=== PATIENT | female | born 1955 | race Caucasian/White ===

== ENCOUNTER 2020-08-04 08:46 | Outpatient (CLI) | payer MEDICARE, OTHER, SELFPAY ==
--- NOTE | ~2020-08-04 | MM_ITS ---
EXAMINATION: MM screening klever BI w kadie HISTORY: Screening mammogram TECHNIQUE: Craniocaudal and mediolateral oblique 3-D tomosynthesis images were obtained and synthetic 2-D images were generated. CAD analysis was submitted and interpreted. COMPARISON: 08/03/2019 left diagnostic digital mammogram and limited left breast ultrasound 07/25/2019, 05/04/2018, 04/29/2017 bilateral digital screening mammogram examinations BREAST PARENCHYMAL COMPOSITION: There are scattered areas of fibroglandular density. FINDINGS: Stable mild fibroglandular asymmetry. There is no evidence of suspicious mass, calcificatio n, or architectural distortion to suggest malignancy in either breast. There has been no suspicious i nterval change. IMPRESSION: 1. No mammographic evidence of malignancy. 2. Recommend routine screening mammography in one year. BI-RADS Category 1: Negative Reviewed, dictated and finalized at location A. GER DATABASE
== END 2020-08-04 08:47 | disposition home or self-care (01) ==
LOC: CHSIMG 08:51
PROVIDERS: PCP Internal Medicine; Visit Provider Obstetrics & Gynecology
DX: Z12.31 Encounter for screening mammogram for malignant neoplasm of breast (principal)
CPT/HCPCS: 77063; 77067

== ENCOUNTER 2020-12-03 13:50 | Outpatient (CLI) | payer MEDICARE, SELFPAY ==
--- NOTE | ~2020-12-03 | XR_ITS ---
EXAMINATION: XR barium swallow modified DATE: 12/03/2020 14:36 INDICATION: Dysphagia. TECHNIQUE: The patient was given barium-containing material of multiple consistencies to swallow by anitha schultz speech pathologist while I performed fluoroscopy. Dose-area product was 0.92 Gy-cm2. 1.6 minutes fluoroscopy time FINDINGS: Oral Stage: Within functional limits Pharyngeal Phase: Within functional limits Cervical/Esophageal Stage: Within functional limits IMPRESSION: Modified esophagram findings as above. Please refer to the speech therapy [facility]. Reviewed, dictated and finalized at Location A. Reviewed, dictated and finalized at location A. IMPRESSION: Modified esophagram findings as above. Please refer to the speech t herapy report for specific recommendations.
--- NOTE | 2020-12-03 14:48 | STOPEVAL ---
Thank you for referring Sarah Rucker to [facility].? The patient was seen for a modified barium swallow study only. Please review, sign, date and return this plan of care STACIE. I agree with and certify that the following plan of care is medically necessary. Referring Physician Date Admitting Provider: Attending Provider: Martin ValverdeMD Referring Provider: JAYSON Outpatient Evaluation Start: 12/03/20 14:26 Freq: Status: Active Protocol: Document 12/03/20 14:27 [id number] (Rec: 12/03/20 14:47 [facility] [email or web address]) Therapy Assessment Status Assessment Status Assessment Status Evaluation Outpatient Past Medical History Past Medical History No Past Medical/Surgical History Patient/Family Denies Significant Past Medical/ Surgical History Source of Past Medical History Patient Pain Assessment Timing of Pain Assessment Timing of Pain Assessment Assessment Self Report Self Report Pain Level 0 Pain Score Pain Score 0: Self Report Modified Barium Swallow Evaluation Recent Swallowing History Reports Dysphagia Yes Onset of Dysphagia 1-2 years ago Duration of Dysphagia 1-2 yrs occasional difficulty swallowing solids (lunch meats , crispy chips) History of Pneumonia No Reported Difficult Consistencies Solids Intake Method Prior to Swallow Oral Evaluation Diet Prior to Swallow Evaluation Regular, Level 7 Liquid Consistency Prior to Swallow Thin (0) Evaluation Consistency Solid Consistency 5 mL Other Amount Frito chips Method of Presentation self fed Oral Preparatory Symptoms Within Functional Limits Oral Phase Symptoms Within Functional Limits Pharyngeal Phase Symptoms Within Functional Limits, Residue in Valleculae Severity of Vallecular Residue Trace - 1-5 % Trace Coating of the Mucosa Severity of Pyriform Sinus Residue None - 0% No Residue 8 Point Laryngeal Penetration-Aspiration Material Does Not Enter Airway Scale Pharyngeal Phase Comments Mild residue post deglutition with clearance through subsequent swallow. Pureed Consistency 5 mL Method of Presentation Spoon Oral Preparatory Symptoms Within Functional Limits Oral Phase Symptoms Within Functional Limits Pharyngeal Phase Symptoms Within Functional Limits Severity of Vallecular Residue None - 0% No Residue Severity of Pyriform Sinus Residue None - 0% No Residue 8 Point Laryngeal Penetration-Aspiration Material Does Not Enter Airway Scale
== END 2020-12-03 13:51 | disposition home or self-care (01) ==
LOC: CHSIMG 13:52
PROVIDERS: PCP Internal Medicine; Visit Provider Otolaryngology
DX: R13.19 Other dysphagia (principal)
CPT/HCPCS: 92611

== ENCOUNTER 2021-05-28 13:17 | Outpatient (RCR) | payer MEDICARE, SELFPAY ==
--- NOTE | 2021-05-28 13:35 | PTOPEVAL ---
Thank you for referring Sarah Mayberry to [facility].? The patient is scheduled to be seen for therapy? ____x/week for ___ weeks. Please review, sign, date and return this plan of care STACIE. I agree with and certify that the following plan of care is medically necessary. Referring Physician Date Admitting Provider: Attending Provider: Ventura Hinton MD Referring Provider: *PT Outpatient Evaluation Start: 05/28/21 13:02 Freq: Status: Active Protocol: Document 05/28/21 13:00 [facility] (Rec: 05/28/21 13:34 [facility] [email or web address]) Therapy Assessment Status Assessment Status Assessment Status Evaluation Evaluation Information Problem Diagnosis BPPV Onset 05/26/21 Subjective Information patient reports she has had Query Text:As Reported By Patient/ BPPV off and on for 15 years. Family she reports she has maybe had a bout of it 4 times a year. she reports the first time she had this was the worst. she reports she has issues rolling to the R, looking up, and lying flat on her back. she reports her symptoms will go away when she straightens/sits up. she reports her vertigo/ dizziness will feel like she going to fall or is falling. she reports laying back slowly helps. she reports she has not had treatment in roughly 8 years. Pain Assessment Timing of Pain Assessment Timing of Pain Assessment Assessment Self Report Self Report Pain Level 0 Pain Score Pain Score 0: Self Report Cervical and Lumbar ROM Cervical ROM Reason Not Measured WNL/Left,WNL/Right Cervical ROM Comments hesitation with cervical extension (looking up to ceiling). Palpation Assessment Palpation Palpation patient presents with positive vertiacl nystagmus with little hallpike test to the R side. General Exercise General Exercises Exercise Description -merrick maneuver 5 minutes Query Text:Record Sets, Reps, -hep education 5 minutes Resistance, and Position PT Clinical Summary Clinical Summary Protocol: PTEVCODE PT Clinical Summary mrs. mayberry is a pleasant 66 yo woman who presents to skilled PT services for
--- NOTE | 2021-06-11 13:36 | PTOPEVAL ---
Thank you for referring Sarah Mayberry to [facility].? The patient is scheduled to be seen for therapy? ____x/week for ___ weeks. Please review, sign, date and return this plan of care STACIE. I agree with and certify that the following plan of care is medically necessary. Referring Physician Date Admitting Provider: Attending Provider: Ventura Hinton MD Referring Provider: *PT Outpatient Evaluation Start: 05/28/21 13:02 Freq: Status: Active Protocol: Document 06/11/21 13:00 [facility] (Rec: 06/11/21 13:33 [facility] [id number]) Therapy Assessment Status Assessment Status Assessment Status Discharge Evaluation Information Problem Diagnosis BPPV Onset 05/26/21 Additional Evaluation Detail DHI = 12% functionally declined Subjective Information patient reports she has had no Query Text:As Reported By Patient/ symptoms of dizziness in the Family last 2 weeks. 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 she reports she has been compliant with her HEP at home. Pain Assessment Timing of Pain Assessment Timing of Pain Assessment Assessment Self Report Self Report Pain Level 0 Pain Score Pain Score 0: Self Report Cervical and Lumbar ROM Cervical ROM Reason Not Measured WNL/Left,WNL/Right Cervical ROM Comments no hesitation in cervical mobility Palpation Assessment Palpation Palpation negative little hallpike testing bilaterally General Exercise General Exercises Exercise Description -cawthorne fidelia exercise Query Text:Record Sets, Reps, review 5 minutes Resistance, and Position -re-evaluation 5 minutes PT Clinical Summary Clinical Summary Protocol: PTEVCODE PT Clinical Summary mrs. maybrery presents to skilled PT for her 3rd skilled PT visit for BPPV. during her therapy time she has participate in merrick maneuver exercises and cawthorne fidelia habituation exercises. 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 she woul
== END 2021-06-11 16:48 | disposition home or self-care (01) ==
LOC: CHSPT 13:17
PROVIDERS: PCP Internal Medicine; Visit Provider Internal Medicine
DX: H81.10 Benign paroxysmal vertigo, unspecified ear (principal)
CPT/HCPCS: 97110; 97161

== ENCOUNTER 2021-05-30 07:41 | Outpatient (CLI) | payer MEDICARE, SELFPAY ==
--- NOTE | ~2021-05-30 | MR_ITS ---
EXAMINATION: MR brain IAC wo con DATE: 05/30/2021 08:51 INDICATION: Chronic vertigo. Dizziness. TECHNIQUE: Magnetic resonance imaging (MRI) of the brain, brainstem, and internal auditory canals was performed without intravenous contrast. Sequences included sagittal and axial T1-weighted FSE, axial diffusion-weighted FS EPI, axial T2*-weighted GRE, axial T2-weighted FLAIR Propeller, axial T2-weigh dennise Propeller, small snbhh-pr-aoqd coronal FIESTA, small ijxvv-tq-pxqd coronal T1-weighted FSE, and s mall nucqs-dj-zjrz axial T1-weighted SPGR. Apparent diffusion coefficient (ADC) maps were created. COMPARISON: None. FINDINGS: There are scattered areas of nonspecific increased T2-weighted signal intensity in the cere bral white matter, which is within normal limits for the patient's age. There is no intracranial hemo rrhage, acute infarction, or abnormal intracranial mass lesion. The ventricles are normal in size. Th e orbits are normal. There is mild mucosal thickening in the ethmoid sinuses. The mastoid air cells a re normal. The internal auditory canals and inner and middle ears are normal. IMPRESSION: 1. Normal aging brain. Reviewed, dictated and finalized at location A. IMPRESSION: 1. Normal aging brain.
== END 2021-05-30 07:42 | disposition home or self-care (01) ==
LOC: CHSIMG 07:43
PROVIDERS: PCP Internal Medicine; Visit Provider Internal Medicine
DX: R42 Dizziness and giddiness (principal)
CPT/HCPCS: 70551

== ENCOUNTER 2021-08-18 08:24 | Outpatient (CLI) | payer MEDICARE, SELFPAY ==
--- NOTE | ~2021-08-18 | MM_ITS ---
EXAMINATION: MM screening klever BI w kadie HISTORY: Screening mammogram, family history of breast cancer in her mother. TECHNIQUE: Craniocaudal and mediolateral oblique 3-D tomosynthesis images were obtained and synthetic 2-D images were generated. CAD analysis was submitted and interpreted. COMPARISON: 08/04/2020, 08/03/2019 07/25/2019 BREAST PARENCHYMAL COMPOSITION: There are scattered areas of fibroglandular density. FINDINGS: There is no evidence of suspicious mass, calcification, or architectural distortion to sugg est malignancy in either breast. There has been no suspicious interval change. IMPRESSION: 1. No mammographic evidence of malignancy. 2. Recommend routine screening mammography in one year. BI-RADS Category 1: Negative Reviewed, dictated and finalized at location A. NA SUBSPECIALIST
== END 2021-08-18 08:25 | disposition home or self-care (01) ==
LOC: CHSIMG 08:25
PROVIDERS: PCP Internal Medicine; Visit Provider Obstetrics & Gynecology
DX: Z12.31 Encounter for screening mammogram for malignant neoplasm of breast (principal)
CPT/HCPCS: 77063; 77067

== ENCOUNTER 2021-11-16 10:03 | Outpatient (CLI) | payer MEDICARE, SELFPAY ==
[2021-11-16 10:18] LABS: Basophils Absolute Auto 0.01 K/mm3 (0.00-0.10); Basophils Percent Auto 0.2 % (0.0-1.0); Eosinophils Absolute Auto 0.06 K/mm3 (0.02-0.50); Eosinophils Percent Auto 1.1 % (1.0-6.0); Hematocrit 43.6 % (35.0-42.0); Hemoglobin 14.4 g/dL (11.7-13.8); Immature Granulocyte Absolute 0.02 K/mm3 (0.00-0.00); Immature Granulocyte Percent A 0.4 % (0.0-0.0); Lymphocytes Absolute Auto 2.16 K/mm3 (1.10-4.50); Lymphocytes Percent Auto 40.3 % (18.0-42.0); Mean Corpuscular Hemoglobin 30.3 pg (27.0-31.0); Mean Corpuscular Volume 91.8 fL (78.0-102.0); Mean Platelet Volume 10.4 fl (9.2-11.8); Monocytes Absolute Auto 0.46 K/mm3 (0.10-0.90); Monocytes Percent Auto 8.6 % (2.0-11.0); Neutrophils Absolute Auto 2.7 K/mm3 (1.7-7.2); Neutrophils Percent Auto 49.4 % (50.0-70.0); Platelet Count Result 274 K/mm3 (150-420); Red Blood Count 4.75 M/mm3 (4.20-5.40); Red Cell Distribution Width 12.3 % (11.6-14.4); White Blood Count 5.4 K/mm3 (4.8-10.8)
[2021-11-16 10:53] LABS: Alanine Aminotransferase 20 U/L (14-59); Albumin Level 3.9 g/dL (3.4-5.0); Alkaline Phosphatase 56 U/L (46-116); Anion Gap 8 mmol/L (8-16); Aspartate Amino Transferase 15 U/L (15-37); Bilirubin,Total 0.5 mg/dL (0.00-1.00); Blood Urea Nitrogen 13 mg/dL (7-18); Calcium 9.2 mg/dL (8.5-10.1); Carbon Dioxide 29 mmol/L (21-32); Chloride 103 mmol/L (98-108); Cholesterol 179 mg/dL (0-200); Creatine Kinase 41 U/L (26-192); Estimated Glomerular Filt Rate > 60; Glucose 89 mg/dL (70-99); HDL Direct 69 mg/dL (40-60); LDL Cholesterol Calculated 97 mg/dL (<130); Osmolality Calculated 289 mOsm/kg (285-295); Potassium 3.9 mmol/L (3.5-5.1); Sodium 140 mmol/L (136-145); Total Protein 7.2 g/dL (6.4-8.2); Triglycerides 67 mg/dL (0-150)
[2021-11-18 14:25] LABS: Vitamin D 25 Hydroxy 38 ng/mL (30-100)
== END 2021-11-16 10:04 | disposition home or self-care (01) ==
LOC: CHSLAB 10:05
PROVIDERS: PCP Internal Medicine; Visit Provider Internal Medicine
DX: E78.5 Hyperlipidemia, unspecified (principal); M81.0 Age-related osteoporosis without current pathological fracture; N39.0 Urinary tract infection, site not specified
CPT/HCPCS: 36415; 80053; 80061; 82306; 82550; 85025

== ENCOUNTER 2021-11-17 08:00 | Outpatient (CLI) | payer MEDICARE, SELFPAY ==
[2021-11-17 08:17] LABS: Add Urine Microscopic? YES; Appearance Urine Clear (Clear); Bilirubin Urine Negative (Negative); Blood Urine Negative (Negative); Color Urine Light Yellow (Yellow); Glucose Urine UA Negative (Negative); Ketones Urine Negative (Negative); Leukocyte Esterase Ur 2+ LEU/UL (Negative); Nitrate Urine Negative (Negative); Protein Urine Negative (Negative); Urobilinogen Urine 0.2 mg/dL (0.2-1.0)
[2021-11-17 08:28] LABS: RBC Urine None seen /hpf (0-2)
[2021-11-17 08:29] LABS: Bacteria Urine 2+ /hpf; Squamous Epithelial Cell Urine Few /hpf (Few)
== END 2021-11-17 08:01 | disposition home or self-care (01) ==
LOC: CHSLAB 08:02
PROVIDERS: PCP Internal Medicine; Visit Provider Internal Medicine
DX: E78.5 Hyperlipidemia, unspecified (principal); M81.0 Age-related osteoporosis without current pathological fracture; N39.0 Urinary tract infection, site not specified
CPT/HCPCS: 81001; 87086; 87088

== ENCOUNTER 2022-01-04 13:56 | Outpatient (CLI) | payer MEDICARE, SELFPAY ==
--- NOTE | ~2022-01-04 | DEXA_ITS ---
Bone Density Report Name: SUNITHA HART Age: 66 Sex: Female Ethnicity: White Date of : 1955 Indication: postmenopausal; screening for osteoporosis; parental hip fracture; prior fracture; Referring Provider: ERASMO LOPEZ Study: Bone densitometry was performed. Exam Date: January 04, 2022 Accession number: [id number] Bone Density: Region BMD T-score Z-score Classification AP Spine(L1-L4) 0.923 -1.1 0.8 Osteopenia Femoral Neck (Left) 0.600 -2.2 -0.6 Osteopenia Total Hip (Left) 0.729 -1.7 -0.4 Osteopenia Femoral Neck (Right) 0.551 -2.7 -1.1 Osteoporosis Total Hip (Right) 0.702 -2.0 -0.6 Osteopenia Femoral Neck Mean 0.575 -2.5 -0.9 Osteoporosis Total Hip Mean 0.716 -1.9 -0.5 Osteopenia World Health Organization criteria for BMD impression classify patients as: Normal (T-score at or above -1.0), Osteopenia (T-score between -1.0 and -2.5), or Osteoporosis (T-score at or below -2.5). 10-year Fracture Risk: FRAX not reported because: Some T-score for Spine Total or Hip Total or Femoral Neck at or below -2.5 Clinical Information Provided by Patient: Has had a low trauma fracture Parent has had a hip fracture Has used the following medications: Fosamax (i.e. alendronate), Vitamin D Patient maximum height was 65 Menopause Age: 50 No regular weight bearing exercise Drinks caffeinated beverages Onset of menses at age 12 Number of children 3 Impression: The patient has established osteoporosis, based on the Right Femoral Neck T-score and the existence of a prior fracture. The patient has risk factors, including: parental hip fracture, previous fracture. Discussion: HIGH RISK OF FRACTURE. BONE DENSITY IS UNDESIRABLY LOW AT ONE OR MORE SKELETAL SITES, CONSISTENT WITH POSTMENOPAUSAL OSTEOPOROSIS. This patient's lowest T-score, in a patient who has previously fractured, meets the World Health Organization's (WHO) criteria for severe osteoporosis. In untreated patients, the risk of osteoporotic fracture increases approximately two-fold for each 1.0 SD decrease in T-score. Low bone density is not the only risk factor for fracture; also consider factors such as patient's age, frailty or poor health, risk of falling, risk of injury, previous osteoporotic fracture, family history of osteoporosis, cigarette smoking, low body weight, etc. Not everyone with low bone mineral density has osteoporosis; osteomalacia and other metabolic bone disorders should also be considered. Patients who have osteoporosis should be evaluated for specific diseases and conditions (secondary causes) that may cause or contribute to bone loss. The [place] [employer] Endocrinologists (AACE) and National Osteoporosis Foundation (NOF) recommend pharmacologic intervention for all postmenopausal women whose
== END 2022-01-04 13:57 | disposition home or self-care (01) ==
LOC: CHSIMG 13:59
PROVIDERS: PCP Internal Medicine; Visit Provider Internal Medicine
DX: M81.0 Age-related osteoporosis without current pathological fracture (principal)
CPT/HCPCS: 77080

== ENCOUNTER 2022-01-26 11:05 | Outpatient (CLI) | payer MEDICARE, SELFPAY ==
[2022-01-26 11:40] VITALS: BP 153/77; PULSE 88; RESP 14; O2SAT 98
[2022-01-26] MEDS: DENOSUMAB 60 MG/ML SYRINGE SUB-Q (11:40)
[2022-01-26 11:41] VITALS: BMI 27.1
--- NOTE | 2022-01-26 11:42 | PC.NURSE ---
Patient here for Prolia injection. Education given. All Concerns voiced. Prolia injection administered see MAR. Tolerated well. Safe exit of hospital.
== END 2022-01-26 11:06 | disposition home or self-care (01) ==
LOC: CHSLAB 11:08 → CHSTREATRM 11:22
PROVIDERS: PCP Internal Medicine; Visit Provider Internal Medicine
DX: M81.0 Age-related osteoporosis without current pathological fracture (principal)
CPT/HCPCS: 96372; J0897

== ENCOUNTER 2022-08-12 10:28 | Outpatient (CLI) | payer MEDICARE, SELFPAY ==
[2022-08-12 10:42] VITALS: BP 135/76; PULSE 72; RESP 14; TEMP 36.8; O2SAT 97
[2022-08-12 10:45] VITALS: BMI 27.5
[2022-08-12] MEDS: DENOSUMAB 60 MG/ML SYRINGE SUB-Q (10:50)
--- NOTE | 2022-08-12 10:53 | PC.NURSE ---
Patient here for q 6 month Prolia injection. Education given. No concerns voiced. Prolia injection administered-SEE MAR. Tolerated well. Safe exit of hospital.
== END 2022-08-12 10:29 | disposition home or self-care (01) ==
LOC: CHSTREATRM 10:32
PROVIDERS: PCP Internal Medicine; Visit Provider Internal Medicine
DX: M81.0 Age-related osteoporosis without current pathological fracture (principal)
CPT/HCPCS: 96372; J0897

== ENCOUNTER 2022-08-27 08:22 | Outpatient (CLI) | payer MEDICARE, SELFPAY ==
--- NOTE | ~2022-08-27 | CT_ITS ---
EXAMINATION: CT abdomen pelvis wo/w con DATE: 08/27/2022 09:33 INDICATION: Bladder neoplasm of uncertain malignant potential TECHNIQUE: Computed tomography (CT) of the abdomen and pelvis was performed without intravenous contr ast. CT of the abdomen and pelvis was then performed with a total of 130 mL Omnipaque 350 intravenous contrast using a double-bolus technique for simultaneous opacification of the renal parenchyma and r enal collecting system. The dose-length product (DLP) was 1501.73 mGy-cm. Automated exposure control and iterative reconstruction technique were employed. COMPARISON: 07/10/2018 FINDINGS: Minimal dependent atelectasis is present in the lung bases. The heart size is normal. The g allbladder is surgically absent. The liver, spleen, pancreas, and adrenal glands are normal. There ar e multiple small nonobstructing stones of the kidneys which measure up to 4 mm on the right and 3 mm on the left. The mid and distal ureters are not well opacified however no obstructing lesion or stone are identified. There is a small amount of gas in the urinary bladder, likely due to recent instrume ntation. No suspicious renal or urothelial lesion is identified. No pathologically enlarged abdominal or pelvic lymph nodes are identified. There is no free intraperitoneal gas or evidence of bowel obst ruction. The appendix is normal. There is mild lumbar spondylosis. IMPRESSION: 1. No suspicious renal or urothelial lesion identified. 2. Nonobstructing bilateral nephrolithiasis. Reviewed, dictated and finalized at location B. L MACHINE TENDER
[2022-08-27 09:08] LABS: Estimated Glomerular Filt Rate > 60
== END 2022-08-27 08:23 | disposition home or self-care (01) ==
PROVIDERS: PCP Internal Medicine; Visit Provider Urology
DX: D41.4 Neoplasm of uncertain behavior of bladder (principal); N20.0 Calculus of kidney
CPT/HCPCS: 74178; Q9967

== ENCOUNTER 2022-09-21 20:04 | Emergency (ER) | payer MEDICARE, SELFPAY ==
[2022-09-21 20:32] VITALS: BP 132/67; PULSE 81; RESP 18; TEMP 36.8; O2SAT 98
--- NOTE | 2022-09-22 00:27 | PC.NURSE ---
patient states the wait is too long and left from waiting room
== END 2022-09-22 00:27 | disposition left against medical advice (07) ==
PROVIDERS: PCP Internal Medicine
DX: Z53.1 Procedure and treatment not carried out because of patient's decision for reasons of belief and group pressure (principal)
CPT/HCPCS: 99199

== ENCOUNTER 2022-09-22 13:55 | Outpatient (CLI) | payer MEDICARE, SELFPAY ==
--- NOTE | ~2022-09-22 | US_ITS ---
EXAMINATION: US venous doppler [facility] DATE: 09/22/2022 15:01 INDICATION: Left calf pain and swelling. TECHNIQUE: Grayscale ultrasound images without and with compression and Doppler ultrasound images of the left lower extremity veins were obtained. COMPARISON: None. FINDINGS: The visualized portions of left common femoral vein, profunda (deep) femoral vein, femoral vein, popl iteal vein, peroneal veins, posterior tibial veins, and greater saphenous vein outflow are patent. IMPRESSION: 1. No deep venous thrombosis. Reviewed, dictated and finalized at location A. NSION WORKER
[2022-09-22 14:40] LABS: Basophils Absolute Auto 0.02 K/mm3 (0.00-0.10); Basophils Percent Auto 0.3 % (0.0-1.0); Eosinophils Absolute Auto 0.09 K/mm3 (0.02-0.50); Eosinophils Percent Auto 1.2 % (1.0-6.0); Hematocrit 39.7 % (35.0-42.0); Hemoglobin 12.8 g/dL (11.7-13.8); Immature Granulocyte Absolute 0.02 K/mm3 (0.00-0.00); Immature Granulocyte Percent A 0.3 % (0.0-0.0); Lymphocytes Percent Auto 48.6 % (18.0-42.0); Mean Corpuscular HGB Conc 32.2 g/dL (32.0-36.0); Mean Corpuscular Hemoglobin 29.8 pg (27.0-31.0); Mean Corpuscular Volume 92.5 fL (78.0-102.0); Mean Platelet Volume 10.3 fl (9.2-11.8); Monocytes Absolute Auto 0.61 K/mm3 (0.10-0.90); Monocytes Percent Auto 7.8 % (2.0-11.0); Neutrophils Absolute Auto 3.3 K/mm3 (1.7-7.2); Neutrophils Percent Auto 41.8 % (50.0-70.0); Platelet Count Result 271 K/mm3 (150-420); Red Blood Count 4.29 M/mm3 (4.20-5.40); Red Cell Distribution Width 12.5 % (11.6-14.4); White Blood Count 7.8 K/mm3 (4.8-10.8)
[2022-09-22 14:45] LABS: Anion Gap 5 mmol/L (8-16); Blood Urea Nitrogen 9 mg/dL (7-18); Calcium 8.6 mg/dL (8.5-10.1); Carbon Dioxide 29 mmol/L (21-32); Chloride 105 mmol/L (98-108); Estimated Glomerular Filt Rate > 60; Glucose 86 mg/dL (70-99); Osmolality Calculated 285 mOsm/kg (285-295); Potassium 3.9 mmol/L (3.5-5.1); Sodium 139 mmol/L (136-145)
[2022-09-22 14:48] LABS: CRP < 0.5 mg/dL (0.0-0.9)
[2022-09-22 15:13] LABS: D Dimer 0.19 mg/L (0.19-0.50)
[2022-09-22 15:44] LABS: Erythrocyte Sedimentation Rate 30 mm/hr (0-20)
== END 2022-09-22 13:56 | disposition home or self-care (01) ==
LOC: CHSLAB 14:00
PROVIDERS: PCP Internal Medicine; Visit Provider Internal Medicine
DX: M79.89 Other specified soft tissue disorders (principal); M79.662 Pain in left lower leg
CPT/HCPCS: 36415; 80048; 85025; 85380; 85652; 86140; 93971

== ENCOUNTER 2022-10-05 16:41 | Outpatient (CLI) | payer MEDICARE, SELFPAY ==
--- NOTE | ~2022-10-05 | XR_ITS ---
EXAM: XR foot LT min 3V DATE: 10/05/2022 17:36 HISTORY: Left forefoot pain at 1-3rd digits for 5 days; no injury. . COMPARISON: None available. FINDINGS: Decreased mineralization. No fracture or dislocation. No lytic or blastic lesion. Mild sca ttered degenerative change. No erosion or periosteal change. Soft tissues within normal limits. IMPRESSION: No acute osseous finding in the left foot. Reviewed, dictated and finalized at location K. TING SPECIALIST
== END 2022-10-05 16:42 | disposition home or self-care (01) ==
LOC: CHSIMG 16:44
PROVIDERS: PCP Internal Medicine; Visit Provider Internal Medicine
DX: M79.672 Pain in left foot (principal)
CPT/HCPCS: 73630

== ENCOUNTER 2022-10-06 12:57 | Outpatient (CLI) | payer MEDICARE, SELFPAY ==
--- NOTE | ~2022-10-06 | MM_ITS ---
EXAMINATION: MM screening klever BI w kadie HISTORY: Screening mammogram TECHNIQUE: Craniocaudal and mediolateral oblique 3-D tomosynthesis images were obtained and synthetic 2-D images were generated. CAD analysis was submitted and interpreted. COMPARISON: 08/2021, 08/04/2020, 08/03/2019 bilateral screening mammogram examinations BREAST PARENCHYMAL COMPOSITION: There are scattered areas of fibroglandular density. FINDINGS: There is no evidence of suspicious mass, calcification, or architectural distortion to sugg est malignancy in either breast. There has been no suspicious interval change. IMPRESSION: 1. No mammographic evidence of malignancy. 2. Recommend routine screening mammography in one year. BI-RADS Category 1: Negative Reviewed, dictated and finalized at location A. ICU
== END 2022-10-06 12:58 | disposition home or self-care (01) ==
PROVIDERS: PCP Internal Medicine; Visit Provider Obstetrics & Gynecology
DX: Z12.31 Encounter for screening mammogram for malignant neoplasm of breast (principal)
CPT/HCPCS: 77063; 77067

== ENCOUNTER 2022-11-15 08:03 | Outpatient (CLI) | payer MEDICARE, SELFPAY ==
--- NOTE | 2022-11-15 09:06 | ECG_ITS ---
Measurements Intervals Geff Rate: 67 P: 65 NM: 164 QRS: -27 QRSD: 127 T: 60 QT: 433 QTc: 458 Interpretive Statements SINUS RHYTHM LEFT BUNDLE BRANCH BLOCK [120+ ms QRS DURATION, 80+ ms Q/S IN V1/V2, 85+ ms R IN I/aVL/V5/V6] ABNORMAL NO PREVIOUS ECG AVAILABLE FOR COMPARISON Electronically Signed On 11-15-2022 12:28:35 CDT by Dixon Youssef M.D.
[2022-11-15 13:00] LABS: Basophils Percent Auto 0.3 % (0.2-1.2); Eosinophils Absolute Auto 0.1 K/mm3 (0-0.3); Eosinophils Percent Auto 1.1 % (0-4.4); Hematocrit 42.8 % (37.0-47.0); Hemoglobin 13.8 g/dL (12.0-15.0); Immature Granulocyte Absolute 0.01 K/mm3 (0.00-0.031); Immature Granulocyte Percent A 0.1 % (0-0.5); Lymphocytes Absolute Auto 2.98 K/mm3 (0.9-3.2); Lymphocytes Percent Auto 39.9 % (18.3-44.2); Mean Corpuscular HGB Conc 32.2 g/dl (32-36); Mean Corpuscular Hemoglobin 29.8 pg (26-34); Mean Corpuscular Volume 92.4 fl (80-100); Mean Platelet Volume 10.6 fl (7.4-10.4); Monocytes Absolute Auto 0.6 K/mm3 (0.1-0.6); Monocytes Percent Auto 8.2 % (2.6-8.5); Neutrophils Absolute Auto 3.8 K/mm3 (1.3-6.7); Neutrophils Percent Auto 50.4 % (45.5-73.1); Platelet Count Result 301 k/mm3 (150-375); Red Blood Count 4.63 M/mm3 (4.2-5.4); Red Cell Distribution Width 13.3 % (11.5-14.5); White Blood Count 7.5 K/mm3 (4.5-10.0)
[2022-11-15 13:13] LABS: INR 1.1; Prothrombin Time 13.3 Seconds (11.1-14.7)
[2022-11-15 13:14] LABS: Partial Thromboplastin Time 28.6 SECONDS (22.3-36.8)
[2022-11-15 13:24] LABS: Alanine Aminotransferase 16 U/L (6-35); Albumin Level 4.4 g/dL (3.5-5.1); Alkaline Phosphatase 56 U/L (38-126); Anion Gap 7 mmol/L (8-16); Aspartate Amino Transferase 22 U/L (14-36); Bilirubin,Total 0.6 mg/dL (0.2-1.3); Blood Urea Nitrogen 13 mg/dL (7-17); Calcium 9.1 mg/dL (8.4-10.2); Carbon Dioxide 30 mmol/L (22-30); Chloride 103 mmol/L (98-107); Estimated Glomerular Filt Rate > 60; Glucose 70 mg/dL (65-110); Potassium 3.8 mmol/L (3.4-5.0); Sodium 140 mmol/L (137-145)
== END 2022-11-15 08:04 | disposition home or self-care (01) ==
PROVIDERS: PCP Internal Medicine; Visit Provider Urology
DX: N81.4 Uterovaginal prolapse, unspecified (principal); E78.00 Pure hypercholesterolemia, unspecified; Z01.818 Encounter for other preprocedural examination
CPT/HCPCS: 36415; 80053; 85025; 85610; 85730; 86850; 86900; 86901; 93005

== ENCOUNTER 2022-11-22 00:51 | Day surgery (SDC) | payer MEDICARE, SELFPAY ==
[2022-11-15 08:15] VITALS: BMI 28.5
--- NOTE | 2022-11-15 08:45 | PC.NURSE ---
Report to the Outpatient Waiting Room, entrance under the green pavilion located off [facility], at time _0600 on date _11/22/22 . Planned Procedure Time: __0730 . Time changes happen often and if your time is changed the preop area will call you the afternoon before. - You and your visitor will be asked to self-screen and do not enter if you have any COVID symptoms. - Only one visitor is requested with a max of two and NO children visitors are allowed at this time. - The patient visitor may be requested to leave or wait in car when not with patient due to distancing restrictions. - A mask is optional within the hospital at this time. Patients may have clear liquids (water, carbonated beverages, clear teas, apple juice) until 3 hours prior to surgery with a maximum of 20 ounces. - No food from midnight until time of surgery - Infants may have breast milk until 4 hours before surgery, infant formula 6 hours prior to surgery. - Children will be allowed to drink immediately following surgery. If applicable, please bring a bottle or sippy cup to assist with drinking. Juice, water, soda, and popsicles are readily available. For infants on formula, please bring formula the day of surgery. Pacifiers are allowed. Take the following medications with a SIP of water the morning of surgery: ____NONE DO NOT STOP ANY OF YOUR OTHER PRESCRIPTION MEDICATIONS PRIOR TO SURGERY ?EXCEPT THE FOLLOWING Medications to discontinue per physician NONE Date to take last dose Please no make-up, nail english, hairspray, perfume, deodorant, or body powder the day of surgery. No jewelry (including any body piercings) or valuables the day of surgery, leave them at home. Please take a shower or bath the night before, or the morning of, surgery with an antibacterial soap. Wear comfortable, loose fitting clothing. Children are encouraged to wear pajamas. - Jewelry must be removed prior to entering the operating room. Rings and piercings that are not removed may be cut off. - The hospital will not accept responsibility for valuables. - Please leave all valuables, including medications, at home the day of surgery. If you are going home after surgery, a licensed road oiling truck driver must drive you home. - NO public transportation without another adult if you receive anesthesia. - We recommend that an adult stay with you for 24 hours following discharge. - We also recommend that you do not drive, make important decision, drink alcoholic beverages, or take any drugs that were not prescribed by your health care provider for at least 24 hours after your discharge Follow any additional instructions given to you from your surgeon. If you or anyone in your household have experienced Covid symptoms in the past week, please notify your surgeon or the nurse liaison at the phone number below for possible testing. VERBAL AND WRITTEN instructions given to _PATIENT and asked if any additional questions and then verbalized understanding. Patient advised to call surgeon office or pre surgery nurse liaison [phone] if any additional questions.
[2022-11-15 09:05] VITALS: BP 126/75; PULSE 72; RESP 18; TEMP 37.1; O2SAT 98
--- NOTE | 2022-11-19 08:06 | PM.IMHP ---
H&P: HPI History of Present Illness Date/Time: 11/19/22 08:06 Chief Complaint: Uterine prolapse and stress incontinence Narrative: she has history of uterine prolapse and stress incontinence. She would like this corrected. She also has history of bladder cancer. She is status post TURBT with low-grade bladder cancer Review of Systems Review of Systems: All systems reviewed & are unremarkable except as noted in HPI and below PMFSH Past Medical History Medical History (Updated 11/19/22 @ 08:07 by Mejia Renteria MD) Diverticulosis H/O vaginal delivery Kidney stone Skin cancer of nose Surgical History Surgical History History of cholecystectomy Family History Family History Father Hypertension Grandparent Hypertension Sibling Hypertension Mother Family history of malignant neoplasm of breast in first degree relative Other Family history of malignant neoplasm of breast Social History Social History Smoking status: Never smoker Alcohol intake: current Drinks per week: 2 Substance use: never Substance use type: does not use Lack of Transportation: No Lack of Food: Never True Current Housing: I Have Housing Concerned About Future Housing: No Difficulty Paying Gas/Electric Bills: No Difficulty Paying for Meds: No Currently Unemployed: No Education: Master's Degree or Higher Difficulty w/ Childcare or Family Care: No Living arrangements: with family Spiritual care concerns: No Meds Home Medications and Allergies Home Medications Medication Instructions Recorded Confirmed Type oxybutynin chloride 5 mg tablet 5 mg PO DAILY 08/27/19 11/15/22 History pravastatin 10 mg tablet 10 mg PO DAILY 09/02/20 11/15/22 History acetaminophen 500 mg capsule 500 mg PO Q6H PRN Pain 11/15/22 11/15/22 History omeprazole 20 mg tablet,delayed 20 mg PO PRN PRN Heartburn 11/15/22 11/15/22 History release Allergies Allergy/AdvReac Type Severity Reaction Status Date / Time meperidine Allergy Unknown NAUSEA AND Verified 11/15/22 08:24 VOMITING Sulfa (Sulfonamide Allergy Unknown Itching Verified 11/15/22 08:24 Antibiotics) Exam Narrative: thin no acute distress normal breathing alert orient x3 urethral mobility noted cystocele a +3 loss apical support +1 Assessment and Plan Assessment and plan (1) Uterine prolapse: Code(s): N81.4 - Uterovaginal prolapse, unspecified Status: Acute (2) PADDY (stress urinary incontinence, female): Code(s): N39.3 - Stress incontinence (female) (male) Status: Acute (3) History of bladder cancer: Code(s): Z85.51 - Personal history of malignant neoplasm of bladder Status: Acute Plan planned for robotic colpopexy and sling. I will need to be cognizant of where I put the mesh on the anterior wall due to history of bladder cancer. She understands risks of bleeding, infection, damage to urine tract, vaginal mesh extrusion, urinary tract mesh erosion, obstructive voiding requiring secondary procedure, hip and leg pain, dyspareunia, recurrence of prolapse, diskitis. she wishes to proceed
[2022-11-22] VITALS (12 sets, daily range): BP systolic 95–142; BP diastolic 54–67; PULSE 60–82; RESP 12–18; TEMP 36.3–37.1; O2SAT 94–100
[2022-11-22] MEDS: ACETAMINOPHEN 500 MG TABLET 1000 MG PO (06:27)
[2022-11-22] MEDS: LACTATED RINGERS 1,000 ML 30 ML IV CONT ×2 (06:45→10:32)
--- NOTE | 2022-11-22 07:07 | PM.IMHP ---
H&P: [facility] History of Present Illness Date/Time: 11/22/22 07:07 Chief Complaint: Pelvic pressure Narrative: She is a 67 y/o female with long history of pelvic pressure which has been increasing. She has incomplete uterovaginal prolapse. She has opted for sacralcolpopexy. She is aware this requires hysterectomy. She has agreed to robotic supracervical hysterectomy with bilateral salpingo-oophorectomy. Review of Systems Review of Systems: All systems reviewed & are unremarkable except as noted in HPI and below Constitutional: Constitutional: Reports no additional constitutional complaints Eyes: Eyes: Reports no additional eye complaints Cardiovascular: Cardiovascular: Reports no additional cardiovascular complaints Respiratory: Respiratory: Reports no additional respiratory complaints Gastrointestinal: Gastrointestinal: Reports no additional gastrointestinal complaints Genitourinary: Genitourinary: Reports no additional female genitourinary complaints and Reports as per HPI Integumentary/Breasts: Skin/Breast: Reports system reviewed and no additional complaints, except as docu Neurologic: Reports system reviewed and no additional complaints, except as documented Psychiatric: Psychiatric: Reports no additional psychiatric complaints Hematologic/Lymphatic: Hematologic/Lymphatic: Reports no additional hematologic/lymphatic complaints [facility] Past Medical History Medical History Diverticulosis H/O vaginal delivery Kidney stone Skin cancer of nose Surgical History Surgical History History of cholecystectomy Family History Family History Father Hypertension Grandparent Hypertension Sibling Hypertension Mother Family history of malignant neoplasm of breast in first degree relative Other Family history of malignant neoplasm of breast Social History Social History Smoking status: Never smoker Alcohol intake: current Drinks per week: 2 Substance use: never Substance use type: does not use Lack of Transportation: No Lack of Food: Never True Current Housing: I Have Housing Concerned About Future Housing: No Difficulty Paying Gas/Electric Bills: No Difficulty Paying for Meds: No Currently Unemployed: No Education: Master's Degree or Higher Difficulty w/ Childcare or Family Care: No Living arrangements: with family Spiritual care concerns: No Meds Home Medications and Allergies Home Medications Medication Instructions Recorded Confirmed Type oxybutynin chloride 5 mg tablet 5 mg PO DAILY 08/27/19 11/22/22 History pravastatin 10 mg tablet 10 mg PO DAILY 09/02/20 11/22/22 History acetaminophen 500 mg capsule 500 mg PO Q6H PRN Pain 11/15/22 11/22/22 History omeprazole 20 mg tablet,delayed 20 mg PO PRN PRN Heartburn 11/15/22 11/22/22 History release Allergies Allergy/AdvReac Type Severity Reaction Status Date / Time meperidine Allergy Unknown NAUSEA AND Verified 11/22/22 06:16 VOMITING Sulfa (Sulfonamide Allergy Unknown Itching Verified 11/22/22 06:16 Antibiotics) Vital Signs Vital Signs - 24 hr 11/22/22 06:56 Temperature 98.7 F Pulse Rate 77 Respiratory Rate 16 Blood Pressure 142/59 H Pulse Oximetry 100 Oxygen Delivery Room Air Exam Const: General: comfortable and no acute distress Orientation/consciousness: oriented to person, oriented to place and oriented to time Eyes: General: appearance normal, both eyes and all related structures Neck: Neck: normal visual inspection Resp: Effort & Inspection: normal respiratory effort Auscultation: clear to auscultation bilaterally Cardio: Rate: regular rate Rhythm: regular rhythm GI: Inspection: normal to inspection GI Palp: No abdominal tenderness and Yes No hep
--- NOTE | 2022-11-22 07:11 | WPDHPUPDATE1 ---
History and Physical Update Update Date/Time: 11/22/22 07:11 History and Physical has been reviewed, including an updated exam of the patient. There are NO changes in the patient's condition. Risks, benefits, and alternatives have been discussed and questions answered. Patient agrees to proceed with procedure.
--- NOTE | 2022-11-22 07:12 | WPDANESEPPF ---
Anes - Initial Pre Proc Eval Procedure: Operation Date: 11/22/22 07:30 Proposed Procedures p Robotic Laparoscopic Supracervical Total Hysterectomy with Bilateral Salpingo-oophorectomy - Castro Tejada MD s Robotic Sacrocolpopexy with Urethral Sling - Mejia Renteria MD Date/Time: 11/22/22 07:12 Surgeon: Castro Tejada MD Pre Op Diagnosis: uterine prolapse Patient Data Age: 67 Gender: F Height: 1.65 m Weight: 75.6 kg Last Vital Signs Temp 98.7 F 11/22/22 06:56 Pulse 77 11/22/22 06:56 Resp 16 11/22/22 06:56 BP 142/59 H 11/22/22 06:56 Pulse Ox 100 11/22/22 06:56 O2 Del Method Room Air 11/22/22 06:56 Allergies Allergy/AdvReac Type Severity Reaction Status Date / Time meperidine Allergy Unknown NAUSEA AND Verified 11/22/22 06:16 VOMITING Sulfa (Sulfonamide Allergy Unknown Itching Verified 11/22/22 06:16 Antibiotics) Home Medications Medication Instructions Recorded Confirmed Type oxybutynin chloride 5 mg tablet 5 mg PO DAILY 08/27/19 11/22/22 History pravastatin 10 mg tablet 10 mg PO DAILY 09/02/20 11/22/22 History acetaminophen 500 mg capsule 500 mg PO Q6H PRN Pain 11/15/22 11/22/22 History omeprazole 20 mg tablet,delayed 20 mg PO PRN PRN Heartburn 11/15/22 11/22/22 History release Patient hx anesthesia problems: post op nausea/vomiting Family hx anesthesia problems: none Results Review: All pre-operative results and documents have been reviewed as part of the pre-operative evaluation. [facility] Past Medical History Medical History Diverticulosis H/O vaginal delivery Kidney stone Skin cancer of nose Surgical History Surgical History History of cholecystectomy Family History Family History Father Hypertension Grandparent Hypertension Sibling Hypertension Mother Family history of malignant neoplasm of breast in first degree relative Other Family history of malignant neoplasm of breast Social History Social History Smoking status: Never smoker Alcohol intake: current Drinks per week: 2 Substance use: never Substance use type: does not use Lack of Transportation: No Lack of Food: Never True Current Housing: I Have Housing Concerned About Future Housing: No Difficulty Paying Gas/Electric Bills: No Difficulty Paying for Meds: No Currently Unemployed: No Education: Master's Degree or Higher Difficulty w/ Childcare or Family Care: No Living arrangements: with family Spiritual care concerns: No Anes - Eval Final PreProcedure Day of Procedure 11/22/22 07:12 Patient weight: normal Heart: regular rate and rhythm Lungs: clear to auscultation Airway: Mallampati scale class II Neurological: alert and oriented Last oral intake: >/= 8 hours ASA classification: III Emergent: no Anesthetic plan: proceed Anesthesia type and monitoring: general ETT and standard monitoring Results Review: All pre-operative results and documents have been reviewed as part of the pre-operative evaluation. Informed Consent: The patient's anesthetic plan and its attendant risks and benefits were discussed with the patient/family/POA. Questions were solicited and answers provided to the satisfaction of the patient/family/POA.
[2022-11-22] MEDS: KETOROLAC 15 MG/ML VIAL (*BKC) IV PUSH (07:13)
--- NOTE | 2022-11-22 07:14 | WPDHPUPDATE1 ---
History and Physical Update Update Date/Time: 11/22/22 07:14 History and Physical has been reviewed, including an updated exam of the patient. There are NO changes in the patient's condition. Risks, benefits, and alternatives have been discussed and questions answered. Patient agrees to proceed with procedure.
[2022-11-22] MEDS: SCOPOLAMINE 1.5 MG PATCH TRANSDERM (07:32)
[2022-11-22] MEDS: ceFAZolin 2 GM/D5W 50 ML 2 GM/50 ML BAG IVPB (07:33)
[2022-11-22] MEDS: metroNIDAZOLE 500 MG/ISO 100ML 500 MG/100 ML BAG 100 MG IVPB ×3 (07:45→22:05)
[2022-11-22] MEDS: BUPIVACAINE/EPINEPHRINE 0.25% 10 ML VIAL 20 ML INFILTRATE (08:16)
--- NOTE | 2022-11-22 08:50 | W.PM.PROC2 ---
Procedure Note - Detailed Date of Procedure 11/22/22 Pre-op Diagnosis uterine prolapse Post-op Diagnosis Same Procedure Performed Robotic assisted laparoscopic supracervical hysterectomy with bilateral salpingo-oophorectomy. Surgeon Castro Tejada MD [facility] Nurse Doe Anesthesia General Indications Uterine prolapse Findings cystocele, uterus prolapse to near introitus Description of Procedure After informed consent was obtained she was taken to the operating room and general endotracheal anesthesia was administered. She was placed in low lithotomy position. She was and prepped and draped in sterile fashion. Cedillo catheter placed in bladder. Attention was turned to the vagina speculum was inserted. Single-tooth tenaculum placed on anterior lip of the cervix. An acorn uterine manipulator was inserted. At this time Dr. Renteria was inserting the robotic ports and instruments. After this was done then attention was turned to the surgery console. The right round ligament was ligated with the vessel sealer. The anterior leaf of the broad ligament was dissected anteriorly. The bladder was dissected off the lower uterine segment. The right infundibulopelvic ligament was ligated with the vessel sealer. The a posterior leaf of the broad ligament and the ascending uterine vessels on the right side was further ligated. The uterine vessels were ligated. Attention was turned to the left round ligament which was ligated and the anterior leaf of the broad ligament was dissected anteriorly. The rest of the vesicouterine peritoneum was dissected off of the uterus and upper cervix. The posterior leaf of the broad ligament was further dissected. The left infundibulopelvic ligament was ligated. The left broad ligament and ascending uterine vessels were ligated with the vessel sealer. The uterine arteries were ligated bilaterally. The uterus was then cauterized from the cervix and placed in the Endo-Catch bag. The cervical stump was cauterized. Hemostasis was noted. Patient tolerated procedure well. At this time Dr. Renteria proceeded with his part of the surgery. Estimated Blood Loss 5 Drains No Packing No Pathology Yes ( Uterus and right and left fallopian tube and ovaries.) Complications No immediate complications Condition Stable Disposition Other [facility] Billing Surgery - Charge Forward: Surgery Billing
--- NOTE | 2022-11-22 10:25 | W.PM.PROC2 ---
Procedure Note - Detailed Date of Procedure 11/22/22 Pre-op Diagnosis uterine prolapse Stress incontinence Post-op Diagnosis Same Procedure Performed Robotic assisted laparoscopic sacral colpopexy Urethral sling Cystoscopy Surgeon Mejia Renteria MD Anesthesia General Indications A woman with uterine prolapse as well as stress incontinence. She desires surgical correction. She is here for the above. She understands risks of bleeding, infection, diskitis, damage to surrounding organs, bowel injury, bowel obstruction, mesh related complications including exposure and extrusion, postoperative voiding dysfunction including incontinence and retention, need for ancillary procedures, dyspareunia, recurrence of prolapse, and other perioperative intraoperative postoperative complications. She agrees to proceed. Findings See below Evidence of prior diverticulitis Description of Procedure She was correctly identified. Informed consent obtained. She from the operating room. She was given general anesthesia. She was given appropriate perioperative antibiotics. She was placed a low lithotomy position. Pressure points were padded. A time-out performed. I marked out the skin 3 fingerbreadths cephalad to the umbilicus. I anesthetized the skin. I incised the skin. I dissected down to the fascia. I grasped the fascia with Dane clamps. I entered the fascia sharply in a Canas type technique. I placed sutures for later fascial closure. I placed a midline trocar. I examined the abdomen. There is no sign of any injury. Under direct vision I placed 2 additional trocars in the right upper quadrant and 2 additional trocars the left upper quadrant. She was placed in steep Trendelenburg. The robot was docked. Her beveler completed their portion of the procedure. Please see that operative report for details. I then sat at the console. She had a long redundant colon which was deep in the pelvis. She had scarring around the area consistent with prior diverticulitis. I was able to get the colon out of the pelvis with retraction. The Sizer in the vagina created plane on the anterior and posterior vaginal wall. I took great care not to injure the vagina, bladder, or rectum. I took great care to pursue the bladder away in the anterior vaginal wall due to history of transitional cell carcinoma the bladder. It it was a bit more adherent here than normal due to previous bladder tumor resection. I introduced the mesh into the abdomen. I sewed the anterior leaflet of mesh on the anterior vaginal wall. I sewed the anterior mesh mostly just the cervix and due to her history of bladder cancer. I sewed the posterior leaflet of mesh on the posterior vaginal wall. This was done with several sutures of 2 0 Mears-C[place]. I reflected the colon laterally. I opened the posterior peritoneum over the sacral promontory. I carried this into the cul-de-sac. I freed up the edges for later retroperitonealization. I located the anterior longitudinal ligament the sacrum. I cleaned off all fatty tissues. I then tensioned my mesh appropriately. I did a vaginal exam the bedside. I assured prolapse reduction without undue tension. I then sewed the proximal leaflet of mesh onto the anterior longitudinal ligament of the sacrum with several sutures of 2 0 Mears-Cleveland. I then used a 2 0 Monocryl to completely and meticulously retroperitonealized all mesh. I allowed the colon to go back to its normal anatomic location. There is no sign of any impingement. The specimen was then removed. All ports removed. Fascia was tied down. Skin was closed with Monocryl and surgical glue. She was repositioned and prepped for urethral sling. I marked out the inner thigh incisions. I anesthetized the skin and made the incisions. I then anesthetized the anterior vaginal wall at the mid urethra. I made a 1 cm incision. I dissected out laterally taking great care not to injure the refille
[2022-11-22] MEDS: fentaNYL CITRATE INJ (*CRX) 100 MCG/2 ML VIAL 25 MCG IV PUSH ×8 (10:51→11:24)
[2022-11-22] MEDS: KCL 20 MEQ/D5/0.45% SOD CHL 1,000 ML 100 ML IV CONT ×2 (12:30→19:22)
[2022-11-22] MEDS: KETOROLAC 30 MG/ML VIAL (*BKC) IV PUSH ×2 (14:26→20:33)
[2022-11-22] MEDS: ceFAZolin 1 GM/NS 50 ML 1 GM/50 ML BAG IVPB ×2 (15:15→23:12)
[2022-11-22] MEDS: HYDROcodone/acetaminophen (*CRX) 5-325 MG TABLET 1 TAB PO ×2 (16:15→21:44)
[2022-11-23] MEDS: KETOROLAC 30 MG/ML VIAL (*BKC) IV PUSH (05:39)
[2022-11-23 05:42] VITALS: BP 110/53; PULSE 57; RESP 18; TEMP 37.3; O2SAT 97
[2022-11-23] MEDS: metroNIDAZOLE 500 MG/ISO 100ML 500 MG/100 ML BAG 100 MG IVPB (05:44)
[2022-11-23] MEDS: ceFAZolin 1 GM/NS 50 ML 1 GM/50 ML BAG IVPB (07:30)
[2022-11-23] MEDS: DOCUSATE SODIUM 100 MG CAPSULE PO (07:34)
[2022-11-23] MEDS: HYDROcodone/acetaminophen (*CRX) 5-325 MG TABLET 1 TAB PO (07:34)
[2022-11-23] MEDS: PRAVASTATIN SODIUM 10 MG TABLET PO (07:35)
[2022-11-23] MEDS: ENOXAPARIN 30 MG/0.3 ML SYRINGE SUB-Q (07:36)
[2022-11-23 08:00] VITALS: BP 117/54; PULSE 54; RESP 16; TEMP 37.1; O2SAT 99
--- NOTE | 2022-11-23 16:20 | P.PNOB_ITS ---
TECHNICIAN ASSISTANT - A/P Assessment and plan (1) H/O hysterectomy for benign disease: Code(s): Z90.710 - Acquired absence of both cervix and uterus Status: Acute Assessment and Plan: POD1 s/p ketan hysterectomy, sacral colpopexy, sling. She is doing well. Plan for discharge today. Postoperative Procedures: Procedures Operation Date: 11/22/22 07:30 Actual Procedure Side Surgeon p Robotic Laparoscopic Supracervical Hysterectomy with Bilateral Salpingo- oophorectomy Bilateral Castro Tejada MD s Robotic Sacrocolpopexy with Urethral Sling Mejia Renteria MD Time Spent With Patient Time: Total time spent is greater than 50% in coordination of care (as documented) at patient's floor/unit and/or counseling patient: Time with patient: less than 15 minutes TECHNICIAN ASSISTANT- PN:Yvonne Post-Op Subjective Date/time seen: 11/23/22 0800 Interval history: She states she has adequate pain control. She has not walked the room. She has tolerated some crackers no nausea or vomiting. Cedillo was recently removed. Exam Const: General: comfortable and no acute distress Resp: Effort & Inspection: normal respiratory effort Auscultation: clear to auscultation bilaterally Cardio: Rate: regular rate Rhythm: regular rhythm GI: Other: Positive bowel sounds. Slightly distended. Appropriate tenderness. Incisions intact. Skin: General skin exam: normal color TECHNICIAN ASSISTANT - PN: Obj Data Vital Signs Vital Signs: Vital Signs - 24 hr 11/22/22 19:32 11/22/22 19:34 11/22/22 23:15 Temperature 98.2 F 98.8 F Pulse Rate 70 60 Respiratory Rate 16 16 Blood Pressure 95/62 L 112/58 L Pulse Oximetry 95 95 Oxygen Delivery Room Air 11/22/22 23:18 11/23/22 05:42 11/23/22 06:08 Temperature 99.1 F Pulse Rate 57 L Respiratory Rate 18 Blood Pressure 110/53 L Pulse Oximetry 97 Oxygen Delivery Room Air Room Air 11/23/22 08:00 Temperature 98.8 F Pulse Rate 54 L Respiratory Rate 16 Blood Pressure 117/54 L Pulse Oximetry 99 Oxygen Delivery Intake/Output Intake/Output: Intake & Output 11/20/22 11/21/22 11/22/22 11/23/22 23:59 23:59 23:59 23:59 Intake Total 2870 1400 Output Total 1870 1150 Balance 1000 347
== END 2022-11-23 11:40 | disposition home or self-care (01) ==
LOC: ANHSURGERY 07:33 → ANHOB2 12:02
PROVIDERS: Urology; PCP Internal Medicine; Visit Provider Obstetrics & Gynecology
PROC: (CPT 58542; principal; 2022-11-22 07:30)
PROC: (CPT 57425; 2022-11-22 07:30)
DX: N81.4 Uterovaginal prolapse, unspecified (principal); N39.3 Stress incontinence (female) (male); Z85.51 Personal history of malignant neoplasm of bladder
CPT/HCPCS: 57288; 57425; 58542; S2900 ×2; 88307; 99199; A9270; C1771; C1781; C9290; J0690; J1100; J1170; J1650; J1885; J2250; J2405; J2704; J2710; J3010; J3480; J7030; J7120

== ENCOUNTER 2023-03-17 12:47 | Outpatient (CLI) | payer MEDICARE, SELFPAY ==
[2023-03-17 13:01] VITALS: BP 116/69; PULSE 80; RESP 14; TEMP 36.6; O2SAT 98; BMI 27.5
[2023-03-17] MEDS: DENOSUMAB 60 MG/ML SYRINGE SUB-Q (13:07)
--- NOTE | 2023-03-17 13:14 | PC.NURSE ---
Patient here for Prolia injection. Education given. No concerns voiced. Reports had this last year without problems. Injection administered. SEE OCT. Tolerated well. Safe exit of hospital. Will return Sep 2023 for next Prolia injection.
== END 2023-03-17 12:48 | disposition home or self-care (01) ==
PROVIDERS: PCP Internal Medicine; Visit Provider Internal Medicine
DX: M81.0 Age-related osteoporosis without current pathological fracture (principal)
CPT/HCPCS: 96372; J0897

== ENCOUNTER 2023-05-09 12:45 | Outpatient (CLI) | payer MEDICARE, SELFPAY ==
--- NOTE | 2023-05-09 13:05 | ECHO_ITS ---
Patient Info Name: Sarah Rucker Age: 68 years : 1955 Gender: Female Ht: 65 in Wt: 170 lbs BSA: 1.90 m2 HR: 66 bpm BP: 141 / 71 mmHg Heart Rhythm: Sinus Rhythm Technical Quality: Good Exam Date: 05/09/2023 12:55 PM Exam Location: [facility] Patient Status: Outpatient Admit Date: 05/09/2023 Staff Ordering Physician: Ventura Hinton MD Ripening Room Hand: David Silva RDCS Attending Provider: Ventura Hinton MD Referring Physician: Jamaal CRUZ; Exam Type: CA echo doppler color flow Study Info Indications - Abn EKG Complete two-dimensional, color flow and Doppler transthoracic echocardiogram is performed. Summary 1. Complete two-dimensional, color flow and Doppler transthoracic echocardiogram is performed. 2. Left ventricular chamber dimension is normal. 3. Left ventricular systolic function is normal, estimated at 60-65%. 4. E/e' 11 is mildly elevated. 5. There is mild mitral valve regurgitation. 6. No pulmonary hypertension, estimated pulmonary arterial systolic pressure is 24 mmHg. Left Ventricle E/e' 11 is mildly elevated. Left ventricular chamber dimension is normal. Left ventricular systolic function is normal, estimated at 60-65%. Right Ventricle Right ventricular systolic function is normal and with normal TAPSE 2.6 cm. Right ventricular chamber dimension is normal. Left Atria Left atrial chamber dimension is normal. Right Atria Right atrial chamber dimension is normal. Aortic Valve The aortic valve is trileaflet. There is no aortic valve stenosis. There is no aortic valve regurgitation. Pulmonic Valve There is no pulmonic regurgitation. Mitral Valve There is no mitral valve stenosis. There is mild mitral valve regurgitation. Tricuspid Valve There is no tricuspid valve regurgitation. No pulmonary hypertension, estimated pulmonary arterial systolic pressure is 24 mmHg. Pericardium/Pleural There is no pericardial effusion. Inferior Vena Cava Normal inferior vena cava with >50% collapse upon inspiration consistent with normal right atrial pressure, 5 mmHg. Aorta The aortic root size at the sinus of Valsalva is normal. Left Ventricular Outflow Tract Name Value Normal LVOT 2D LVOT Diameter 2.1 cm LVOT Doppler LVOT Peak Velocity 86 cm/s LVOT Peak Gradient 3 mmHg LVOT Mean Gradient 2 mmHg LVOT VTI 26 cm LVOT VTI/AV VTI Ratio 0.8 LVOT Stroke Volume 89 ml Pulmonic Valve Name Value Normal RVOT Doppler RVOT Peak Gradient 4 mmHg PV Doppler PV Peak Velocity 112 cm/s PV Peak Gradient 5 mmHg Mitral Valve Name
== END 2023-05-09 12:46 | disposition home or self-care (01) ==
LOC: CHSIMG 12:47
PROVIDERS: PCP Internal Medicine; Visit Provider Internal Medicine
DX: R94.31 Abnormal electrocardiogram [ECG] [EKG] (principal); I34.0 Nonrheumatic mitral (valve) insufficiency
CPT/HCPCS: 93306

== ENCOUNTER 2023-07-08 23:05 | Emergency (ER) | payer MEDICARE, SELFPAY ==
[2023-07-08] VITALS (7 sets, daily range): BP systolic 144–156; BP diastolic 64–81; PULSE 60–78; RESP 16–22; TEMP 36.8; O2SAT 94–100
--- NOTE | ~2023-07-08 | XR_ITS ---
XR chest 2V DATE: 07/08/2023 23:37 INDICATION: Squeezing chest pain TECHNIQUE: 2 views COMPARISON: None FINDINGS: Normal heart size. No hilar or mediastinal enlargement. No pulmonary infiltrate or consolid ation, pleural effusion or pulmonary vascular congestion or pneumothorax. Surgical clips, right upper quadrant, likely due to cholecystectomy. Diffuse osteopenia. Thoracolumbar scoliosis. IMPRESSION: No active cardiopulmonary disease Osteopenia Reviewed, dictated and finalized at location A. [facility]
--- NOTE | 2023-07-08 23:06 | ED.CHESTPAIN ---
HPI - Chest Pain General Chief Complaint: Chest Pain Stated Complaint: CHEST PAIN Time Seen by Provider: 07/08/23 23:06 Source: patient and RN notes reviewed Mode of arrival: ambulatory Limitations: no limitations History of Present Illness MD complaint: chest pain Onset (ago): hour(s) (9) Timing of current episode: episodic Onset: during rest Pain location: substernal Pain radiation: neck Severity: moderate Quality: tightness Relieving factors: nothing Exacerbating factors: exertion Associated symptoms: dyspnea Treatment prior to arrival: none Risk Factors Coronary artery disease risk factors: hyperlipidemia Thoracic aortic dissection risk factors: none Related Data Home Medications Medication Instructions Recorded Confirmed oxybutynin chloride 5 mg tablet 5 mg PO DAILY 08/27/19 07/08/23 pravastatin 10 mg tablet 10 mg PO DAILY 09/02/20 07/08/23 omeprazole 20 mg tablet,delayed 20 mg PO PRN PRN Heartburn 11/15/22 07/08/23 release Allergies Allergy/AdvReac Type Severity Reaction Status Date / Time Sulfa (Sulfonamide Allergy Unknown Hives Verified 07/08/23 23:06 Antibiotics) meperidine AdvReac Unknown NAUSEA AND Verified 07/08/23 23:06 VOMITING PMFSH Past Medical History Medical History Diverticulosis H/O vaginal delivery Kidney stone Skin cancer of nose Surgical History Surgical History H/O bilateral salpingo-oophorectomy History of cholecystectomy History of hysterectomy, supracervical S/P cystoscopy S/P sacrocolpopexy Status post creation of urethral sling by suprapubic approach Family History Family History Father Hypertension Grandparent Hypertension Sibling Hypertension Mother Family history of malignant neoplasm of breast in first degree relative Other Family history of malignant neoplasm of breast Social History Social History Smoking status: Never smoker Alcohol intake: current Drinks per week: 2 Substance use: never Substance use type: does not use Lack of Transportation: No Lack of Food: Never True Current Housing: I Have Housing Concerned About Future Housing: No Difficulty Paying Gas/Electric Bills: No Difficulty Paying for Meds: No Currently Unemployed: No Education: Master's Degree or Higher Difficulty w/ Childcare or Family Care: No Living arrangements: with family Occupation/Education: retired Gender identity (if verbalized by the patient): Female Sexual Orientation (if Verbalized by the Patient): Straight or Heterosexual Spiritual care concerns: No Exam Const: General: healthy appearing, no acute distress and alert Nutritional Appearance: well nourished Orientation/consciousness: patient oriented x3 Limitations: no limitations HENMT: Head: normal to inspection Ears: external ears normal Face/Nose/Sinus: Normal external nose present Face and sinus: normal facial exam Mouth: Yes moist mucous membranes Eyes: Conjunctivae: conjunctivae normal Pupils: Equal, round and reactive pupils present EOM: EOMs intact bilaterally Neck: Neck: normal visual inspection Chest: Chest palpation & inspection: tenderness sternum ( reproduces her pain) Resp: Effort & Inspection: normal respiratory effort Auscultation: clear to auscultation bilaterally Cardio: Rate: regular rate Rhythm: regular rhythm GI: GI Palp: Yes Soft to palpation and No Tenderness to palpation present (GI) Auscultation: normal bowel sounds Back/Spine/Pelvis: Cervical Spine: cervical ROM normal Thoracic/Lumbar Spine: thoraco-lumbar ROM normal Skin: General skin exam: normal color Rashes: no rashes Neuro: General: patient oriented x3, moves all extremities, no focal motor deficits and CN's II-XI intact bilaterally Speech: normal speech G
--- NOTE | 2023-07-08 23:11 | ECG_ITS ---
Measurements Intervals Kimberly Rate: 63 P: 70 WV: 174 QRS: -36 QRSD: 137 T: 96 QT: 450 QTc: 461 Interpretive Statements SINUS RHYTHM LEFT AXIS DEVIATION LEFT BUNDLE BRANCH BLOCK ABNORMAL ECG COMPARED TO ECG 11/15/2022 10:20:15 LEFT-AXIS DEVIATION NOW PRESENT Electronically Signed On 07-09-2023 8:44:57 [employer] by Wilson Turner D.O.
[2023-07-08 23:25] LABS: Basophils Absolute Auto 0.03 K/mm3 (0.00-0.10); Basophils Percent Auto 0.3 % (0.0-1.0); Eosinophils Absolute Auto 0.12 K/mm3 (0.02-0.50); Eosinophils Percent Auto 1.3 % (1.0-6.0); Hematocrit 40.7 % (35.0-42.0); Hemoglobin 13.5 g/dL (11.7-13.8); Immature Granulocyte Absolute 0.02 K/mm3 (0.00-0.00); Immature Granulocyte Percent A 0.2 % (0.0-0.0); Lymphocytes Absolute Auto 3.81 K/mm3 (1.10-4.50); Lymphocytes Percent Auto 41.5 % (18.0-42.0); Mean Corpuscular HGB Conc 33.2 g/dL (32.0-36.0); Mean Corpuscular Hemoglobin 30.4 pg (27.0-31.0); Mean Corpuscular Volume 91.7 fL (78.0-102.0); Mean Platelet Volume 10.5 fl (9.2-11.8); Monocytes Absolute Auto 0.81 K/mm3 (0.10-0.90); Monocytes Percent Auto 8.8 % (2.0-11.0); Neutrophils Absolute Auto 4.4 K/mm3 (1.7-7.2); Neutrophils Percent Auto 47.9 % (50.0-70.0); Platelet Count Result 255 K/mm3 (150-420); Red Blood Count 4.44 M/mm3 (4.20-5.40); Red Cell Distribution Width 12.9 % (11.6-14.4); White Blood Count 9.2 K/mm3 (4.8-10.8)
[2023-07-08] MEDS: ASPIRIN 81 MG CHEWABLE TABLET 324 MG PO (23:30)
[2023-07-08 23:40] LABS: Partial Thromboplastin Time 27.9 SEC (23.90-30.70); Prothrombin Time 10.7 Seconds (9.50-12.10)
[2023-07-08 23:43] LABS: Alanine Aminotransferase 26 U/L (14-59); Albumin Level 3.4 g/dL (3.4-5.0); Alkaline Phosphatase 48 U/L (46-116); Anion Gap 6 mmol/L (8-16); Aspartate Amino Transferase 23 U/L (15-37); Bilirubin,Total 0.4 mg/dL (0.00-1.00); Blood Urea Nitrogen 17 mg/dL (7-18); Calcium 9.1 mg/dL (8.5-10.1); Carbon Dioxide 30 mmol/L (21-32); Chloride 105 mmol/L (98-108); Estimated CRCL calculation 51 ml/min; Estimated Glomerular Filt Rate 58; Glucose 107 mg/dL (70-99); Osmolality Calculated 293 mOsm/kg (285-295); Sodium 141 mmol/L (136-145); Total Protein 7.1 g/dL (6.4-8.2); Troponin I 4.8 ng/L (0.00-60.4)
[2023-07-09] VITALS: PULSE 66; RESP 15; O2SAT 95
[2023-07-09 00:01] VITALS: BP 138/64; PULSE 67; RESP 16; O2SAT 98
[2023-07-09 00:15] VITALS: BP 142/86; PULSE 73; RESP 14; O2SAT 97
[2023-07-09 00:16] VITALS: PULSE 71; RESP 14; O2SAT 100
[2023-07-09 00:25] VITALS: PULSE 58
== END 2023-07-09 01:01 | disposition home or self-care (01) ==
PROVIDERS: Emergency Provider Emergency Medicine; PCP Internal Medicine
DX: R07.89 Other chest pain (principal); Z79.899 Other long term (current) drug therapy
CPT/HCPCS: 36415; 71046; 80053; 84484; 85025; 85610; 85730; 93005; 99284; A9270

== ENCOUNTER 2023-08-25 07:46 | Outpatient (CLI) | payer MEDICARE, SELFPAY ==
--- NOTE | ~2023-08-25 | DEXA_ITS ---
Bone Density Report Name: SUNITHA HART Age: 68 Sex: Female Ethnicity: White Date of : 1955 Indication: postmenopausal; screening for osteoporosis; prior fracture; cancer; Referring Provider: Ventura Hinton Study: Bone densitometry was performed. Exam Date: August 25, 2023 Accession number: [id number] Bone Density: Region BMD T-score Z-score Classification AP Spine(L1-L4) 0.946 -0.9 1.1 Normal Femoral Neck (Left) 0.600 -2.2 -0.5 Osteopenia Total Hip (Left) 0.838 -0.9 0.6 Normal Femoral Neck (Right) 0.554 -2.7 -1.0 Osteoporosis Total Hip (Right) 0.732 -1.7 -0.3 Osteopenia Femoral Neck Mean 0.577 -2.5 -0.8 Osteoporosis Total Hip Mean 0.785 -1.3 0.1 Osteopenia World Health Organization criteria for BMD impression classify patients as: Normal (T-score at or above -1.0), Osteopenia (T-score between -1.0 and -2.5), or Osteoporosis (T-score at or below -2.5). 10-year Fracture Risk: FRAX not reported because: Some T-score for Spine Total or Hip Total or Femoral Neck at or below -2.5 Treated for osteoporosis Clinical Information Provided by Patient: Has had a low trauma fracture Is being treated for osteoporosis Has used the following medications: Fosamax (i.e. alendronate), HRT (i.e. estrogen/hormone therapy), Prolia (i.e. denosumab), Vitamin D Has the following medical conditions: Cancer Patient maximum height was 65 Menopause Age: 50 No regular weight bearing exercise Drinks caffeinated beverages Onset of menses at age 12 Number of children 3 Impression: The patient has established osteoporosis, based on the Right Femoral Neck T-score and the existence of a prior fracture. The patient has risk factors, including: previous fracture. Discussion: It is important to ask patients whether they are taking their medications and to encourage continued and appropriate compliance with their osteoporosis therapies to reduce fracture risk. It is also important to review their risk factors and encourage appropriate calcium and vitamin D intakes, exercise, fall prevention and other lifestyle measures. Follow-Up: Consider a repeat BMD and Vertebral Fracture Assessment (VFA) exam in 2 years or sooner if medically necessary, to reassess this patient's status. Reported by: Dr. Doe Membreno on 08/25/2023 8:12:00 AM. Reviewed, dictated and finalized at location A.
== END 2023-08-25 07:47 | disposition home or self-care (01) ==
LOC: CHSIMG 07:49
PROVIDERS: PCP Internal Medicine; Visit Provider Internal Medicine
DX: Z78.0 Asymptomatic menopausal state (principal); M81.0 Age-related osteoporosis without current pathological fracture; M85.89 Other specified disorders of bone density and structure, multiple sites
CPT/HCPCS: 77080

== ENCOUNTER 2023-09-06 09:32 | Outpatient (CLI) | payer MEDICARE, SELFPAY ==
--- NOTE | ~2023-09-06 | XR_ITS ---
Supine and upright views of the abdomen Clinical history: Kidney stone COMPARISON: 11/26/2008 Findings: Bowel gas pattern is nonspecific. No evidence for obstruction or free air. Probable small b ilateral renal stones present. Cholecystectomy clips noted. Osseous structures are intact. Impression: Probable small bilateral renal stones. Reviewed, dictated and finalized at [facility]. ENT PORTAL REPRESENTATIVE Impression: Probable small bilateral renal stones.
== END 2023-09-06 09:33 | disposition home or self-care (01) ==
PROVIDERS: PCP Internal Medicine; Visit Provider Urology
DX: N20.0 Calculus of kidney (principal)
CPT/HCPCS: 74018

== ENCOUNTER 2023-09-19 10:24 | Outpatient (CLI) | payer MEDICARE, SELFPAY ==
[2023-09-19 10:43] VITALS: BMI 27.5
[2023-09-19] MEDS: ZOLEDRONIC ACID 5 MG/100 ML 100 ML 400 MG IVPB (10:55)
[2023-09-19 11:14] VITALS: BP 121/70; PULSE 68; RESP 14; TEMP 36.4; O2SAT 99
--- NOTE | 2023-09-19 12:40 | PC.NURSE ---
Patient here for IV Reclast. Education given. No concerns voiced. IV Reclast administered. SEE MAR. Tolerated well. Safe exit of hospital per self/ambulatory.
== END 2023-09-19 10:25 | disposition home or self-care (01) ==
LOC: CHSLAB 10:26 → CHSTREATRM 10:37
PROVIDERS: PCP Internal Medicine; Visit Provider Internal Medicine
DX: M81.0 Age-related osteoporosis without current pathological fracture (principal)
CPT/HCPCS: 96374; J3489

== ENCOUNTER 2023-10-10 11:42 | Outpatient (CLI) | payer MEDICARE, SELFPAY ==
--- NOTE | ~2023-10-10 | MM_ITS ---
EXAMINATION: MM screening klever BI w kdaie HISTORY: Screening TECHNIQUE: Craniocaudal and mediolateral oblique 3-D tomosynthesis images were obtained and synthetic 2-D images were generated. CAD analysis was submitted and interpreted. COMPARISON: Comparison to multiple prior studies sequentially, with oldest reviewed study dated 05/08. BREAST PARENCHYMAL COMPOSITION: There are scattered areas of fibroglandular density. FINDINGS: There is no evidence of suspicious mass, calcification, or architectural distortion to sugg est malignancy in either breast. There has been no suspicious interval change. IMPRESSION: 1. No mammographic evidence of malignancy. 2. Recommend routine screening mammography in one year. BI-RADS Category 1: Negative Reviewed, dictated and finalized at location A. NESS ANALYST
== END 2023-10-10 11:43 | disposition home or self-care (01) ==
LOC: CHSIMG 11:44
PROVIDERS: PCP Internal Medicine; Visit Provider Obstetrics & Gynecology
DX: Z12.31 Encounter for screening mammogram for malignant neoplasm of breast (principal)
CPT/HCPCS: 77063; 77067

== ENCOUNTER 2024-08-28 09:32 | Outpatient (CLI) | payer MEDICARE, SELFPAY ==
--- NOTE | ~2024-08-28 | DEXA_ITS ---
Bone Density Report Name: SUNITHA HART Age: 69 Sex: Female Ethnicity: White Date of : 1955 Indication: osteopenia; monitoring treatment; prior fracture; cancer; hysterectomy; Referring Provider: Ventura Hinton Study: Bone densitometry was performed. Exam Date: August 28, 2024 Accession number: [id number] Bone Density: Region BMD T-score Z-score Classification AP Spine(L1-L4) 0.917 -1.2 0.9 Osteopenia Femoral Neck (Left) 0.611 -2.1 -0.4 Osteopenia Total Hip (Left) 0.802 -1.1 0.3 Osteopenia Femoral Neck (Right) 0.566 -2.5 -0.8 Osteoporosis Total Hip (Right) 0.717 -1.8 -0.4 Osteopenia Femoral Neck Mean 0.588 -2.3 -0.6 Osteopenia Total Hip Mean 0.760 -1.5 0.0 Osteopenia World Health Organization criteria for BMD impression classify patients as: Normal (T-score at or above -1.0), Osteopenia (T-score between -1.0 and -2.5), or Osteoporosis (T-score at or below -2.5). 10-year Fracture Risk: FRAX not reported because: Some T-score for Spine Total or Hip Total or Femoral Neck at or below -2.5 Treated for osteoporosis Previous Exams: Region Exam Age BMD T-score BMD Change BMD Change Date g/cm2 vs Baseline vs Previous AP Spine (L1-L4) 08/28/2024 69 0.917 -1.2 -0.029 (-3.1%) -0.029 (-3.1%) 08/25/2023 68 0.946 -0.9 Total Hip(Left) 08/28/2024 69 0.802 -1.1 -0.036 (-4.3%) -0.036 (-4.3%) 08/25/2023 68 0.838 -0.9 Total Hip(Right) 08/28/2024 69 0.717 -1.8 -0.015 (-2.0%) -0.015 (-2.0%) 08/25/2023 68 0.732 -1.7 *Denotes significance at 95% confidence level, LSC for AP Spine = 0.022 g/cm2, LSC for Total Hip = 0.027 g/cm2 Clinical Information Provided by Patient: Has had a low trauma fracture Is being treated for osteoporosis Has used the following medications: Fosamax (i.e. alendronate), Prolia (i.e. denosumab), Vitamin D, Calcium Has the following medical conditions: Cancer, Hysterectomy Patient maximum height was 65 Menopause Age: 50 No regular weight bearing exercise Drinks caffeinated beverages Onset of menses at age 12 Number of children 3 Impression: The patient has established osteoporosis, based on the Right Femoral Neck T-score and the existence of a prior fracture. The patient has risk factors, including: previous fracture. The BMD for the AP Spine (L1-L4) decreased, changing by -3.1% since the last DXA exam. The BMD for the Total Hip(Left) decreased, changing by -4.3% since the last DXA exam. Discussion: SIGNIFICANT BONE LOSS OBSERVED. Adherence to therapy (including calcium and vitamin D intake) should be assessed. If compliance is not a factor, review management and exclusion of secondary causes of bone loss. It is important to ask patients whether they are taking their medications and to encourage continued and appropriate compliance with their osteoporosis therapies to reduce fracture risk. It is also important to review their risk factors and encourage appropriate calcium and vitamin D intakes, exercise, fall prevention and other lifestyle measures. Follow-Up: Consider a repeat BMD and Vertebral Fracture Assessment (VFA) exam in 2 years or sooner if medically necessary, to reassess this patient's status. Reported by: EVENS on 08/28/2024 9:58:00 AM. Reviewed, dictated and finalized at location A.
== END 2024-08-28 09:33 | disposition home or self-care (01) ==
LOC: CHSIMG 09:35
PROVIDERS: PCP Internal Medicine; Visit Provider Internal Medicine
DX: Z78.0 Asymptomatic menopausal state (principal); M85.89 Other specified disorders of bone density and structure, multiple sites; M81.0 Age-related osteoporosis without current pathological fracture
CPT/HCPCS: 77080

== ENCOUNTER 2024-09-07 10:39 | Outpatient (CLI) | payer MEDICARE, SELFPAY ==
[2024-09-07 10:52] LABS: Hematocrit 41.2 % (35.0-42.0); Hemoglobin 13.1 g/dL (11.7-13.8); Mean Corpuscular HGB Conc 31.8 g/dL (32-36); Mean Corpuscular Hemoglobin 27.9 pg (27.0-31.0); Mean Corpuscular Volume 87.8 fL (78.0-102.0); Mean Platelet Volume 9.6 fl (9.2-11.8); Platelet Count Result 312 K/mm3 (150-420); Red Blood Count 4.69 M/mm3 (4.20-5.40); Red Cell Distribution Width 13.3 % (11.6-14.4); White Blood Count 7.3 K/mm3 (4.8-10.8)
[2024-09-07 10:55] LABS: Add Urine Microscopic? YES; Appearance Urine Clear (Clear); Bilirubin Urine Negative (Negative); Blood Urine Negative (Negative); Color Urine Light Yellow (Yellow); Glucose Urine UA Negative (Negative); Ketones Urine Negative (Negative); Leukocyte Esterase Ur 1+ LEU/UL (Negative); Nitrate Urine Negative (Negative); Protein Urine Negative (Negative); Urobilinogen Urine 0.2 mg/dL (0.2-1.0); pH Urine 7.5 (5.0-8.0)
[2024-09-07 11:05] LABS: Bacteria Urine Trace /hpf; RBC Urine None seen /hpf (0-2); Squamous Epithelial Cell Urine Few /hpf (Few); WBC Urine 0-3 /hpf (0-3)
--- OUTSIDE RECORDS SUMMARY | 2024-09-07 11:12 | XMS_ITS | Referral Summary ---
Author Organization [facility] [employer] Address [address] [place] [address] Care Team Providers Care Technician Helper Instrument Name Role Phone Ventura Hinton MD Primary Care Provider + [phone] Allergies Active Allergy Reactions Criticality Noted Date Comments Acetaminophen-Melatonin Other (See comments) Low nightmares Sulfa (Sulfonamide Antibiotics) Itching Low 08/11/2023 Medications pravastatin (PRAVACHOL) 10 mg tablet Take 1 tablet (10 mg total) by mouth daily 10/06/2020 Active oxyBUTYnin (DITROPAN) 5 mg tablet Take 1 tablet (5 mg total) by mouth daily Active omeprazole (PriLOSEC) 20 mg capsule Take 1 capsule (20 mg total) by mouth daily Active ergocalciferol, vitamin D2, 10 mcg (400 unit) tablet Take 25 mcg by mouth Active Active Problems Problem Noted Date Diagnosed Date Abnormal stress test 07/28/2023 CARDOSO (dyspnea on exertion) 06/21/2023 LBBB (left bundle branch block) 06/21/2023 Mixed hyperlipidemia 06/21/2023 Pharyngoesophageal dysphagia 11/19/2020 Sore throat 11/19/2020 Social History Tobacco Use Types Packs/Day Years Used Date Smoking Tobacco: Never Smokeless Tobacco: Never Tobacco Cessation:Counseling Given: Not Answered Personal Safety Answer Date Recorded Getting School Help Needed Not on file 07/26 Comments Unknown Sex and Gender Information Value Date Recorded Sex Assigned at Not on file Legal Sex Female 8:30 AM CDT Gender Identity Not on file Sexual Orientation Not on file Last Filed Vital Signs Vital Sign Reading Time Taken Comments Blood Pressure 114/70 09/29/2023 9:27 AM SCHOOL CHILDCARE ATTENDANT Pulse 77 09/29/2023 9:27 AM SCHOOL CHILDCARE ATTENDANT Temperature 36.5 ??C (97.7 ??F) 11/18/2020 1:37 PM CD T Respiratory Rate - - Oxygen Saturation 98% 09/29/2023 9:27 AM SCHOOL CHILDCARE ATTENDANT Inhaled Oxygen Concentration - - Weight 77.5 kg (170 lb 12.8 oz) 09/29/2023 9:27 AM SCHOOL CHILDCARE ATTENDANT Height 165.1 cm (5' 5 ) 09/29/2023 9:27 AM SCHOOL CHILDCARE ATTENDANT Body Mass Index 28.42 09/29/2023 9:27 AM SCHOOL CHILDCARE ATTENDANT Plan of Treatment Not on file Insurance MEDICARE [facility] Address: [facility] [address] [place] [address] [facility] [employer] SENIOR SUPPLEMENT Care Teams Technician Helper Instrument Relationship Specialty Start Date End Date Ventura Hinton MD [address] [place] [address] PCP - General Internal Medicine 10/29/20
--- OUTSIDE RECORDS SUMMARY | 2024-09-07 11:12 | XMS_ITS | Clinical Summary ---
Author Organization [facility] Address [address] [place] [address]. [address] [address] Care Team Providers Care Fire Department Marine Engineer Name Role Phone Unavailable Primary Care Provider Unavailabl e Social History Tobacco Use Types Packs/Day Years Used Date Smoking Tobacco: Never Assessed Comments Unknown Sex and Gender Information Value Date Recorded Sex Assigned at Not on file Legal Sex Female 6:00 PM MAT MAN Gender Identity Not on file Sexual Orientation Not on file Plan of Treatment Health Maintenance Due Date Last Done Comments Colorectal Cancer Screening Colonoscopy (10 Years) 1955 Hepatitis C 1973 DTaP, Tdap and Td Vaccines ( 1 - Tdap) 1974 Mammogram Screening 1995 Zoster Vaccines (1 of 2) 2005 Dexa Scan (General) 2020 Pneumococcal Vaccine: 65+ Ye ars (1 of 1 - PCV) 2020 COVID-19 Vaccine ( - 2023-2 5 season) 2024 Influenza Adult (#1) 2024 RSV Immunization or 60+ Years (1 - 1-dose 75+ series) 2030 Meningococcal Vaccine Aged Out No akilah francia eligible based on patient's age to complete this topic RSV Immunizations Under 20 Months Aged Out No longer eligible based on patient's age to complete this topic
--- OUTSIDE RECORDS SUMMARY | 2024-09-07 11:12 | XMS_ITS | Clinical Summary ---
Author Organization [facility] [employer] Address [address] [place] [address] Care Team Providers Care Hasher Operator Name Role Phone Ventura Hinton MD Primary Care Provider + [phone] Allergies Active Allergy Reactions Criticality Noted Date [...] 06/21/2023 Pharyngoesophageal dysphagia 11/19/2020 Sore throat 11/19/2020 Surgical History Surgery Date Site/Laterality Comments KNEE SURGERY CHOLECYSTECTOMY 08/15/1992 - 08/14/1993 BLADDER SURGERY cancer removed OOPHORECTOMY Medical History Medical History Date Comments Basal cell carcinoma Osteoporosis Diverticulitis LBBB (left bundle branch block) Hyperlipidemia Urge incontinence Ganglion Malignant neoplasm of bladder (HCC) Family History Medical History Relation Name Comments Alzheimer's disease Father Bypass surgery Father mitral valve replacement Father Cancer Mother Cancer Paternal Grandmother Relation Name Status Comments Father Mother Paternal Grandmother Social History Tobacco Use Types Packs/Day Years [...] on file Sexual Orientation Not on file Obstetrics History Last Filed Vital Signs Vital Sign Reading Time Taken Comments Blood Pressure 114/70 09/29/2023 9:27 AM CONTACT CENTER MANAGER Pulse 77 09/29/2023 9:27 AM CONTACT CENTER MANAGER Temperature 36.5 ??C (97.7 ??F) 11/18/2020 1:37 PM CD T Respiratory Rate - - Oxygen Saturation 98% 09/29/2023 9:27 AM CONTACT CENTER MANAGER Inhaled Oxygen Concentration - - Weight 77.5 kg (170 lb 12.8 oz) 09/29/2023 9:27 AM CONTACT CENTER MANAGER Height 165.1 cm (5' 5 ) 09/29/2023 9:27 AM CONTACT CENTER MANAGER Body Mass Index 28.42 09/29/2023 9:27 AM CONTACT CENTER MANAGER Plan of Treatment Health Maintenance Due Date Last Done Comments Breast Cancer Screening-Mammogram 1955 Colon Cancer Screening-Colonoscopy 1955 Depression Screening 1955 Fall Risk Assessment 1955 Hepatitis C Screening 1955 Osteoporosis Screening-Bone Density Scan 1955 Hepatitis B Screening 1973 Pneumococcal vaccine 65+ (2 of 2 - PPSV23 or PCV20) 2020 06/19/2015 Well Visit 65+ 2020 DTaP/Tdap/Td Vaccine (2 - Td or Tdap) 10/12/2021 10/12/2011 Influenza Vaccine (#1) 2024 , 07/10/2019, 06/07/2018, Additional history exists Zoster Vaccine Completed 03/04/2020, 08/16, 06/19/2015 [place] [address] MEDICARE [facility] PPO MEDICARE AET SENIOR SUPPLEMENT Care Teams Hasher Operator Relationship Specialty Start Date End Date Ventura Hinton MD [address] [place] [address] PCP - General Internal Medicine 10/29/20
[2024-09-07 11:59] LABS: Anion Gap 8 mmol/L (4-12); Blood Urea Nitrogen 14 mg/dL (7-18); Calcium 9.2 mg/dL (8.5-10.1); Carbon Dioxide 29 mmol/L (21-32); Chloride 103 mmol/L (98-108); Estimated Glomerular Filt Rate > 60; Ferritin 17 ng/mL (8-252); Glucose 93 mg/dL (70-99); Iron 65 ug/dL (50-170); Osmolality Calculated 290 mOsm/kg (285-295); Potassium 4.2 mmol/L (3.5-5.1); Sodium 140 mmol/L (136-145); Vitamin B12 429 pg/mL (193-986)
== END 2024-09-07 10:40 | disposition home or self-care (01) ==
LOC: CHSLAB 10:42
PROVIDERS: PCP Internal Medicine; Visit Provider Internal Medicine
DX: N39.41 Urge incontinence (principal); D64.9 Anemia, unspecified
CPT/HCPCS: 36415; 80048; 81001; 82607; 82728; 83540; 85027; 87086

== ENCOUNTER 2024-10-03 10:30 | Outpatient (CLI) | payer MEDICARE, SELFPAY ==
--- OUTSIDE RECORDS SUMMARY | 2024-10-03 10:42 | XMS_ITS | Clinical Summary ---
Author Organization [facility] Address [facility] [place] [address] Care Team Providers Care Chronic Disease Manager Name Role Phone Unavailable Primary Care Provider Unavailabl e Social History Tobacco Use Types Packs/Day Years Used Date Smoking Tobacco: Never Assessed Comments Unknown Sex and Gender Information Value Date Recorded Sex Assigned at Not on file Legal Sex Female 6:00 PM ENVIRONMENTAL QUALITY ANALYST Gender Identity Not on file Sexual Orientation [...] of 1 - PCV) 2020 COVID-19 Vaccine (2023-2 5 season) 2024 Influenza Adult (#1) 2024 RSV Immunization or 60+ Years (1 - 1-dose 75+ series) 2030 Meningococcal B Vaccine Aged Out No l onger eligible based on patient's age to complete this topic Meningococcal Vaccine Aged Out No akilah francia eligible based on patient's age to complete this topic RSV Immunizations Under 20 Months Aged Out No longer eligible based on patient's age to complete this topic
--- OUTSIDE RECORDS SUMMARY | 2024-10-03 10:42 | XMS_ITS | Clinical Summary ---
Author Organization [facility] Address [address] [place] [address] Care Team Providers Care Bootmaker Name Role Phone Ventura Hinton MD Primary Care Provider + [phone] Allergies Active Allergy Reactions Criticality Noted Date [...] tablet Take 25 mcg by mouth Active calcium carbonate (TUMS) 500 mg (200 mg elemental calcium) chewable tablet Take 1 tablet/chew tab (500 mg total) by mouth daily Active Active Problems Problem Noted Date Diagnosed Date Abnormal stress test 07/28/2023 CARDOSO (dyspnea on exertion) 06/21/2023 LBBB (left bundle branch block) 06/21/2023 Mixed hyperlipidemia 06/21/2023 Pharyngoesophageal dysphagia 11/19/2020 Sore throat 11/19/2020 Encounters Date Type Department Care Team Description 09/18/2024 10:15 AM TIRE MANAGER Office Visit [facility] [address] [place] [address] Shahid Rosenthal MD LBBB (left bundle branch block) (Primary Dx); Need for lipid screening from Last 3 Months Surgical History Surgery Date Site/Laterality Comments KNEE [...] Tobacco: Never Tobacco Cessation:Counseling Given: Not Answered Comments Unknown Sex and Gender Information Value Date Recorded Sex Assigned at Not on file Legal Sex Female 8:30 AM CDT Gender Identity Not on file Sexual Orientation Not on file Obstetrics History Last Filed Vital Signs Vital Sign Reading Time Taken Comments Blood Pressure 112/66 09/18/2024 10:08 AM TIRE MANAGER Pulse 83 09/18/2024 10:08 AM TIRE MANAGER Temperature 36.5 C (97.7 F) 11/18/2020 1:37 PM CDT Respiratory Rate - - Oxygen Saturation 98% 09/18/2024 10:08 AM TIRE MANAGER Inhaled Oxygen Concentration - - Weight 78.7 kg (173 lb 8 oz) 09/18/2024 10:08 AM TIRE MANAGER Height 165.1 cm (5' 5 ) 09/18/2024 10:08 AM TIRE MANAGER Body Mass Index 28.87 09/18/2024 10:08 AM TIRE MANAGER Plan of Treatment Health Maintenance Due Date Last Done Comments Breast Cancer Screening-Mammogram 1955 Colon Cancer Screening-Colonoscopy 1955 Depression Screening 1955 Fall Risk Assessment 1955 Hepatitis C Screening 1955 Osteoporosis Screening-Bone Density Scan 1955 Hepatitis B Screening 1973 Pneumococcal vaccine 65+ (2 of 2 - PPSV23) 06/19/2016 06/19/2015 Well Visit 65+ 2020 DTaP/Tdap/Td Vaccine (2 - Td or Tdap) 10/12/2021 10/12/2011 Influenza Vaccine (#1) 2024 0, 07/10/2019, 06/07/2018, Additional history exists Zoster Vaccine Completed 03/04/2020, 08/16, 06/19/2015 Procedures Procedure Name Priority Date/Time Associated Diagnosis Comments POCT LIPID PANEL Routine 09/18/2024 1:08 PM TIRE MANAGER Need for lipid screening from Last 3 Months Results * POCT lipid panel (09/18/2024 1:08 PM TIRE MANAGER) Cholesterol, POC 184 mg/dL Comment:GLU = 107 HDL, POC 67 mg/dL Triglycerides, POC 96 mg/dL LDL Cholesterol POC 98 mg/dL Chol/HDL Ratio, POC 1.5 Non-HDL Cholesterol, POC 117 mg/dL Cholesterol Total, POC 184 mg/dL Capillary blood 09/18/2024 1 :08 PM TIRE MANAGER Shahid Rosenthal MD POINT OF CARE TEST ORDER TULIO Final Result from Last 3 Months Insurance MEDICARE [facility] PPO MEDICARE [employer] SENIOR SUPPLEMENT Care Teams Bootmaker Relationship Specialty Start Date End Date Ventura Hinton MD [address] [place], [place] [id number] PCP - General Internal Medicine 10/29/20
--- OUTSIDE RECORDS SUMMARY | 2024-10-03 10:42 | XMS_ITS | Referral Summary ---
Author Organization [facility] [employer] Address [address] [place] [address] Care Team Providers Care Geopolitics Teacher Name Role Phone Ventura Hinton MD Primary Care Provider + [phone] Encounters Date Type Department Care Team Description 09/18/2024 10:15 AM UTILIZATION SPECIALIST Office Visit [facility] Card[facility] [address] [place] [address] Shahid Rosenthal MD LBBB (left bundle branch block) (Primary Dx); Need for lipid screening from Last 3 Months Allergies Active Allergy Reactions Criticality Noted Date [...] Comments Blood Pressure 112/66 09/18/2024 10:08 AM UTILIZATION SPECIALIST Pulse 83 09/18/2024 10:08 AM UTILIZATION SPECIALIST Temperature 36.5 C (97.7 F) 11/18/2020 1:37 PM CDT Respiratory Rate - - Oxygen Saturation 98% 09/18/2024 10:08 AM UTILIZATION SPECIALIST Inhaled Oxygen Concentration - - Weight 78.7 kg (173 lb 8 oz) 09/18/2024 10:08 AM UTILIZATION SPECIALIST Height 165.1 cm (5' 5 ) 09/18/2024 10:08 AM UTILIZATION SPECIALIST Body Mass Index 28.87 09/18/2024 10:08 AM UTILIZATION SPECIALIST Plan of Treatment Not on file Procedures Procedure Name Priority Date/Time Associated Diagnosis Comments POCT LIPID PANEL Routine 09/18/2024 1:08 PM UTILIZATION SPECIALIST Need for lipid screening from Last 3 Months Results * POCT lipid panel (09/18/2024 1:08 PM UTILIZATION SPECIALIST) Cholesterol, POC 184 mg/dL Comment:GLU = 107 HDL, POC 67 mg/dL Triglycerides, POC 96 mg/dL LDL Cholesterol POC 98 mg/dL Chol/HDL Ratio, POC 1.5 Non-HDL Cholesterol, POC 117 mg/dL Cholesterol Total, POC 184 mg/dL Capillary blood 09/18/2024 1 :08 PM UTILIZATION SPECIALIST Shahid Rosenthal MD POINT OF CARE TEST ORDER TULIO Final Result from Last 3 Months [place] [address] MEDICARE [facility] PPO MEDICARE AET SENIOR SUPPLEMENT Care Teams Geopolitics Teacher Relationship Specialty Start Date End Date Ventura Hinton MD [address] [place] [address] PCP - General Internal Medicine 10/29/20
[2024-10-03 11:09] VITALS: BP 130/70; PULSE 85; RESP 18; TEMP 37.1; O2SAT 97; BMI 27.5
[2024-10-03] MEDS: ZOLEDRONIC ACID 5 MG/100 ML 100 ML 400 MG IVPB (11:17)
[2024-10-03 11:35] VITALS: BP 132/73; PULSE 72; RESP 14; O2SAT 98
--- NOTE | 2024-10-03 11:37 | PC.NURSE ---
Here for yearly IV Reclast infusion. Education given. No concerns voiced. Infusion administered. SEE MAR/patient care notes. Tolerated well.
== END 2024-10-03 10:31 | disposition home or self-care (01) ==
PROVIDERS: PCP Internal Medicine; Visit Provider Internal Medicine
DX: M81.0 Age-related osteoporosis without current pathological fracture (principal)
CPT/HCPCS: 96374; J3489

== ENCOUNTER 2024-10-12 08:25 | Outpatient (CLI) | payer MEDICARE, SELFPAY | END 2024-10-12 08:26 | disposition home or self-care (01) | LOC: CHSIMG 08:26 | PROVIDERS: PCP Internal Medicine; Visit Provider Obstetrics & Gynecology | DX: Z12.31 Encounter for screening mammogram for malignant neoplasm of breast (principal) | CPT/HCPCS: 77063; 77067 ==

== ENCOUNTER 2025-02-05 13:23 | Outpatient (CLI) | payer MEDICARE, SELFPAY ==
--- NOTE | ~2025-02-05 | XR_ITS ---
Exam: Abdomen 1V HISTORY: Kidney stones COMPARISON: 09/06/2023 TECHNIQUE: Supine images of the abdomen FINDINGS: Bowel gas pattern is non-obstructive. There is no free air or deep sulci. No pathologic calcifications are seen. Lung bases are unremarkable. Bones and soft tissues are unremarkable. IMPRESSION: Nonspecific, nonobstructive bowel gas pattern. Reviewed, dictated and finalized at location A.
== END 2025-02-05 13:24 | disposition home or self-care (01) ==
PROVIDERS: PCP Internal Medicine; Visit Provider Urology
DX: N20.0 Calculus of kidney (principal)
CPT/HCPCS: 74018